=== PATIENT | female | born 1945 | race Caucasian/White ===

== ENCOUNTER 2017-02-02 05:38 | Day surgery (SDC) | payer MEDICARE, OTHER ==
[2017-02-01 16:25] LABS: HEMATOCRIT 39.3 % (36.0-48.0); HEMOGLOBIN 13.1 g/dL (12-16); MCH 31.9 pg (26.0-34.0); MCHC 33.3 g/dL (31.0-37.0); MCV 95.6 fL (80.0-100.0); MEAN PLATELET VOLUME 9.9 fL (7.4-10.4); RBC 4.11 10x6/uL (4.00-5.40); RDW 12.2 % (11.5-14.5); WBC 5.6 10x3/uL (4.8-10.8)
[~2017-02-02] VITALS: Ht 165.1 cm; Wt 71.7 kg
--- NOTE | ~2017-02-02 | OP ---
PATIENT NAME: LEOBARDO MENDEZ MEDICAL RECORD: [id number] :45 [facility] AD[facility]ION DATE: SURGEON: JORGE GIANG DATE OF OPERATION: 02/02/2017 SURGEON: Jorge Giang DPM. PREOPERATIVE DIAGNOSIS: Osteoarthritis, first metatarsophalangeal joint, right foot. POSTOPERATIVE DIAGNOSIS: Osteoarthritis, first metatarsophalangeal joint, right foot. PROCEDURE: Carlos Eduardo-implant arthroplasty, right first metatarsophalangeal joint. ANESTHESIA: General. HEMOSTASIS: Pneumatic ankle tourniquet inflated to 250 mmHg. ESTIMATED BLOOD LOSS: Minimal. MATERIALS: One [email or web address] first MPJ carlos eduardo-implant (phalangeal implant). INJECTABLES: A 20 cc of 0.5% bupivacaine plain. The patient has longstanding history of pain associated the first metatarsophalangeal joint, right foot. She has tried conservative modalities including carbon fiber insert to no avail. She is here today for surgical correction. I have reviewed with her the risks and benefits of the procedure. Complications were discussed, her questions they were answered. She was appropriately consented for the above-mentioned procedure. The patient was brought in the operating room and placed in the operating table in supine position. A timeout was called with Dr. Giang, who identified the patient, the surgical site, and the surgery to be performed. Once appropriate anesthesia was obtained, the foot was prepped and draped in the usual aseptic manner. The pneumatic ankle tourniquet was inflated to 250 mmHg on the well-padded right ankle. Attention was directed to the dorsal aspect of the first metatarsophalangeal joint where a 6 cm linear incision was made. This incision was made just medial to the extensor hallucis longus tendon. This incision was carried deep to soft tissue with care being taken to retract all vital neurovascular structures. All bleeders were cauterized along the way. The periosteum was then reflected from the first metatarsophalangeal joint, thus exposing the base of the proximal phalanx and the head of the first metatarsal. The joint was inspected and found to be completely eroded of all cartilage on both the head of the first metatarsal and the base of the proximal phalanx. Multiple large osteophytes and cartilaginous growth were noted around the base of the proximal phalanx as well as the head of the first metatarsal. These were all resected, utilizing both a sagittal saw and rongeur. Next, the base of the proximal phalanx was resected utilizing a sagittal saw. Next, utilizing a manufacture's recommended technique, one small first metatarsophalangeal joint carlos eduardo-implant was placed OPERATIVE REPORT [id number] LEOBARDO MENDEZ within the base of the proximal phalanx. The toe was placed through a range of motion and range of motion was noted to be in increased. The implant was noted to be of appropriate size. The surgical site was then irrigated with copious amounts of normal sterile saline via bulb syringe. The surgical site was then inspected for any remaining sharp bony prominences and all that were noted were resected with a rongeur. The periosteum was reapproximated and coapted using 3-0 Vicryl. The subQ was reapproximated and coapted using 3-0 Vicryl. The skin was reapproximated and coapted using 4-0 nylon. A dressing consisting of Xeroform, 4 x 4, Kerlix, and an Mando bandage was applied to the right foot. The pneumatic ankle tourniquet was deflated and capillary refill time was immediate to all digits of the right foot. The patient will be discharged home with instructions to ice and elevate the right foot. She has a postop shoe that she is to ambulate with. She was dispensed my cell phone number for any after hours difficulties and there were no complications with this procedure. We will follow up with her next week. TRANSINT:[id number] Voice Confirmation ID: [id number] DOCUMENT ID: [id number] JORGE GIANG CC: [id number] DICTATION DATE: 02/03/171699 AIRPORT BAGGAGE SCREENER: 02/04/17 0044 [facility] 02/02/17 [facility] [address] [id number]
[~2017-02-02 05:38] MED LIST: AMOXICILLIN500 M1 PO; ATIVAN1 MG PO; COZAAR50 MG PO
[2017-02-02] MEDS ORDERED: EVISTA60 MG PO (13:47)
[2017-02-02 13:53] VITALS: BP 159/64; Ht 165.1 cm; Wt 71.7 kg
[2017-02-02] MEDS ORDERED: ZOFRAN ODT4 MG/UDTAB PO (14:09)
--- NOTE | 2017-02-02 17:31 | NUR ---
UNABLE TO FIND FAMILY FOR REPORT. REPORT CALLED TO [facility] NURSE.
--- NOTE | 2017-02-02 20:30 | NUR ---
IV TO LEFT ARM DC'D WITH TIP INTACT, NO REDNESS OR SWELLING NOTED TO SITE. DISCHARGE INSTRUCTIONS REVIEWED WITH PATIENT PER NICHOLAS LAMB RN. VERBALIZED UNDERSTANDING. DC'D VIA WC WITH
== END 2017-02-02 20:33 | disposition home or self-care (01) ==
LOC: D.OPS 05:38 → D.PAN 14:15 → D.OPS 14:15
PROVIDERS: Anesthesiology
DX: M19.071 Primary osteoarthritis, right ankle and foot (principal); I10 Essential (primary) hypertension; Z01.812 Encounter for preprocedural laboratory examination

== ENCOUNTER → 2018-05-18 14:35 | Outpatient (CLI) | payer MEDICARE, OTHER ==
[2017-02-02 13:53] VITALS: BMI 26.3
[~2018-05-18 14:35] MED LIST changes: +EVISTA60 MG PO; +ZOFRAN ODT4 MG/UDTAB PO
== END | disposition home or self-care (01) ==
LOC: D.CT 05-17 15:00
DX: R91.8 Other nonspecific abnormal finding of lung field (principal)

== ENCOUNTER 2018-05-27 11:38 | Inpatient (IN) | payer MEDICARE, OTHER ==
[~2018-05-27] VITALS: Ht 165.1 cm; Wt 68.2 kg
[2018-05-27] MEDS ORDERED: ALENDRONATE SOD70 MG PO (11:44)
[2018-05-27] MEDS ORDERED: NORVASC5 MG PO (11:45)
[2018-05-27] MEDS ORDERED: ZYRTEC10 MG PO (11:45)
[2018-05-27] MEDS ORDERED: CYCLOBENZAPRINE5 MG PO (11:47)
[2018-05-27] MEDS ORDERED: COLACE100 MG PO (11:47)
[2018-05-27] MEDS ORDERED: FLUTICASONE PRO16 GM NASAL (11:48)
[2018-05-27] MEDS ORDERED: FUROSEMIDE40 MG (11:48)
[2018-05-27] MEDS ORDERED: GEMFIBROZIL600 MG PO (11:48)
[2018-05-27] MEDS ORDERED: ESTRACE 0.0142.5 GM VG (11:48)
[2018-05-27] MEDS ORDERED: CLARITIN 10 MG10 MG (11:49)
[2018-05-27] MEDS ORDERED: ED-SPAZ0.125 MG PO (11:49)
[2018-05-27] MEDS ORDERED: COZAAR50 MG PO (11:49)
[2018-05-27] MEDS ORDERED: MIRALAX17 GM PO (11:50)
[2018-05-27] MEDS ORDERED: EVISTA60 MG PO (11:50)
[2018-05-27] MEDS ORDERED: KLOR-CON M2020 MEQ PO (11:50)
[2018-05-27] MEDS ORDERED: TESSALON PERLE100 MG PO (11:51)
[2018-05-27] MEDS ORDERED: RANITIDINE HCL150 M1 PO (11:51)
[2018-05-27] MEDS ORDERED: DESERYL50 M2 PO (11:51)
[2018-05-27] MEDS ORDERED: ALBUTEROL SULF8.5 GM INH (11:52)
[2018-05-27 12:38] LABS: APPEARANCE CLEAR (CLEAR); BILIRUBIN NEGATIVE (NEGATIVE); COLOR STRAW (YELLOW); GLUCOSE NEGATIVE (NEGATIVE); KETONE NEGATIVE (NEGATIVE); NITRITE NEGATIVE (NEGATIVE); PROTEIN NEGATIVE (NEGATIVE); SPECIFIC GRAVITY 1.005 (1.005-1.020); UROBILINOGEN NORMAL (NORMAL)
[2018-05-27 12:52] LABS: BASOPHILS 0.4 % (0-2); EOSINOPHILS 1.1 % (0-7); HEMATOCRIT 38.7 % (36.0-48.0); HEMOGLOBIN 12.7 g/dL (12-16); IMMATURE GRANULOCYTES 0.1 % (0-5); LYMPHOCYTES 18.7 % (15-50); MCH 31.1 pg (26.0-34.0); MCHC 32.8 g/dL (31.0-37.0); MCV 94.6 fL (80.0-100.0); MEAN PLATELET VOLUME 9.1 fL (7.4-10.4); MONOCYTES 12.2 % (2-11); NEUTROPHILS 67.5 % (40-80); RBC 4.09 10x6/uL (4.00-5.40); RDW 12.6 % (11.5-14.5); WBC 7.2 10x3/uL (4.8-10.8)
[2018-05-27 12:58] LABS: PLATELET COUNT 302 10x3/uL (130-400)
[2018-05-27 13:25] LABS: ALBUMIN 2.9 g/dL (3.4-5.0); ANION GAP 14.8 mmol/L (8-16); BILIRUBIN - TOTAL 0.22 mg/dL (0.2-1.3); CALCIUM 8.2 mg/dL (8.5-10.1); CARBON DIOXIDE 26.8 mmol/L (21.0-32.0); CREATININE - SERUM 1.3 mg/dL (0.6-1.3); POTASSIUM - SERUM 4.6 mmol/L (3.5-5.1); PROTEIN - SERUM 6.5 g/dL (6.4-8.2)
[2018-05-27 14:42] VITALS: BP 139/72
[2018-05-27 17:13] LABS: APTT 30.6 SECONDS (22.8-39.4); INR 1.03 (0.85-1.17)
--- NOTE | 2018-05-27 20:00 | NUR ---
UP AMBULATING IN ROOM ALERT AND ORIENTIATED, NONPRODUCTIVE COUGH SALINE LOCK IN PLACE, DENIES PAIN, CALL LIGHT IN REACH, HAS HOME MEDS AT BEDSIDE INSTRUCTED NOT TO TAKE ANY OF HER HOME MEDS NURSE WOULD BRING MEDS THAT HAD ORDERED OR WOULD NEED TO GET DR TO PUT IN ORDER SO CAN TAKE HOME MEDS, STATES SHE WILL NOT TAKE ANY OF HERS TONIGHT
[2018-05-27 21:13] VITALS: BP 104/44
[2018-05-27 22:59] VITALS: BP 132/50; Ht 165.1 cm; Wt 68.2 kg
[2018-05-28] VITALS: BP 129/59
[2018-05-28 03:00] VITALS: BP 128/57
[2018-05-28 05:54] LABS: BASOPHILS 0.7 % (0-2); EOSINOPHILS 6.3 % (0-7); HEMATOCRIT 35.9 % (36.0-48.0); HEMOGLOBIN 11.8 g/dL (12-16); IMMATURE GRANULOCYTES 0.2 % (0-5); LYMPHOCYTES 25.2 % (15-50); MCHC 32.9 g/dL (31.0-37.0); MCV 94.2 fL (80.0-100.0); MEAN PLATELET VOLUME 9.5 fL (7.4-10.4); MONOCYTES 13.9 % (2-11); NEUTROPHILS 53.7 % (40-80); PLATELET COUNT 323 10x3/uL (130-400); RBC 3.81 10x6/uL (4.00-5.40); RDW 12.6 % (11.5-14.5)
[2018-05-28 06:06] LABS: INR 1.09 (0.85-1.17); PROTIME 13.6 SECONDS (11.6-15.0)
[2018-05-28 06:07] LABS: APTT 31.5 SECONDS (22.8-39.4)
[2018-05-28 06:27] LABS: ALBUMIN 2.5 g/dL (3.4-5.0); ANION GAP 14.6 mmol/L (8-16); BILIRUBIN - TOTAL 0.22 mg/dL (0.2-1.3); CALCIUM 8.5 mg/dL (8.5-10.1); CARBON DIOXIDE 25.3 mmol/L (21.0-32.0); CREATININE - SERUM 1.3 mg/dL (0.6-1.3); PROTEIN - SERUM 6.4 g/dL (6.4-8.2)
[2018-05-28 06:28] LABS: POTASSIUM - SERUM 3.9 mmol/L (3.5-5.1)
[2018-05-28 08:06] VITALS: BP 132/58
[2018-05-28 12:40] VITALS: BP 140/66
--- NOTE | 2018-05-28 12:51 | NUR ---
PT LEFT FLOOR FOR PROCEDURE. STABLE AT THIS TIME
--- NOTE | 2018-05-28 13:46 | NUR ---
RETURNED TO ROOM FROM PROCEDURE. ALERT AND ORIENTED WITH DRESSING INTACT TO RIGHT LATERAL CHEST. LUNGS CTA WITHOUT ANY SOB.ENCOURAGED TO USE CALL [facility] FOR ASSIST
--- NOTE | 2018-05-28 15:09 | NUR ---
WILL APPLY TELEMETRY WHEN AVAILABLE.
[2018-05-28 16:05] VITALS: BP 156/54
[2018-05-28 16:11] LABS: PROTEIN - BODY FLUID 4.4 G/DL
[2018-05-28 17:04] LABS: MACROPHAGES BF 10 %; NEUT - BF 10 %
[2018-05-28 19:00] VITALS: BP 124/60
--- NOTE | 2018-05-28 19:23 | NUR ---
RECIEVED UP IN BED VOICING CONCERNS OVER HER MEDICATIONS. EXPLAINED THAT WHEN I COME IN TO GIVE HER MEDS I WOULD GO OVER EACH ONE. VERY ANXIOUS ABOUT PROCEDURE SHE HAD TODAY. C/O SOB. RT CALLED FOR 1900 UPDRATS ORDERED. EVERYTIME THIS NURSE GOES BY ROOM PT PHILIPP ME IN TO QUESTION ABOUT MEDICATIONS. DENIES ANY PAIN. WILL CONT. POC.
[2018-05-29] VITALS: BP 134/60
[2018-05-29 05:17] LABS: BASOPHILS 0.3 % (0-2); EOSINOPHILS 2.9 % (0-7); HEMATOCRIT 35.5 % (36.0-48.0); IMMATURE GRANULOCYTES 0.3 % (0-5); LYMPHOCYTES 23.6 % (15-50); MCH 31.7 pg (26.0-34.0); MCHC 33.8 g/dL (31.0-37.0); MCV 93.7 fL (80.0-100.0); MEAN PLATELET VOLUME 9.5 fL (7.4-10.4); MONOCYTES 11.6 % (2-11); NEUTROPHILS 61.3 % (40-80); PLATELET COUNT 347 10x3/uL (130-400); RBC 3.79 10x6/uL (4.00-5.40); RDW 12.8 % (11.5-14.5); WBC 6.6 10x3/uL (4.8-10.8)
[2018-05-29 05:44] LABS: ALBUMIN 2.5 g/dL (3.4-5.0); ANION GAP 15.2 mmol/L (8-16); BILIRUBIN - TOTAL 0.3 mg/dL (0.2-1.3); CALCIUM 8.3 mg/dL (8.5-10.1); CARBON DIOXIDE 24.7 mmol/L (21.0-32.0); CREATININE - SERUM 1.4 mg/dL (0.6-1.3); POTASSIUM - SERUM 3.9 mmol/L (3.5-5.1); PROTEIN - SERUM 6.3 g/dL (6.4-8.2)
[2018-05-29 05:55] VITALS: BP 113/50
[2018-05-29 08:28] VITALS: BP 115/56
--- NOTE | 2018-05-29 09:49 | MORECARE ---
CASE MANAGEMENT DISCHARGE SUMMARY PATIENT: LEOBARDO MENDEZ LUIS UNIT: [id number] ADM DATE: 05/28/18 AGE: 72 : 45 SEX: F ROOM/BED: D.2214 AUTHOR: KANIKA,DOC PHYSICIAN: REFERRING PHYSICIAN: LUCIA HOWELL MD DATE OF SERVICE: 05/29/18 Discharge Plan Patient Name: LEOBARDO MENDEZ Facility: [facility]:[place] : 1945 Planned Disposition: Home Anticipated Discharge Date: Discharge Date: Expected LOS: Initial Reviewer: [email or web address] Initial Review Date: 05/27/2018 Generated: 05/29/18 10:49 am Comments DCP- Discharge Planning Updated by [email or web address]: Bernice Lucero on 05/29/18 8:[address] Patient Name: LEOBARDO MENDEZ Admission Status: ER Accout number: [id number] Admission Date: 05-28-2018 : 1945 Admission Diagnosis: Attending: Lucia Howell Current LOS: 1 Anticipated DC Date: Planned Disposition: Home Primary Insurance: MEDICARE A & B Discharge Planning Comments: CM met with patient to assess discharge planning needs. Patient stated that she is independent with her care at home and plans to return there today. Her will be her pedicab driver home. There are no steps or stair in her home and she denies any HH or DME needs/wants. CM will continue to follow and assist with dc planning needs as needed Facing End Trimmer: Bernice Lucero DCPIA - Discharge Planning Initial Assessment Updated by [email or web address]: Bernice Lucero on 05/29/18 9:43 am * Is the patient Alert and Oriented? Yes * How many steps to enter\exit or inside your home? * PCP [place] * Pharmacy [facility] * Preadmission Environment Home with Family * ADLs Independent * Equipment None * List name and contact numbers for known caregivers / representatives who currently or will assist patient after discharge: PIPE ( [phone]) * Verbal permission to speak to the caregivers and representatives has been obtained from the patient. N/A * Community resources currently utilized None * Additional services required to return to the preadmission environment? No * Can the patient safely return to the preadmission environment? Yes * Has this patient been hospitalized within the prior 30 days at any hospital? No Patient Name: LEOBARDO MENDEZ Page 73154 at 0949 All edits/amendments must be made on the electronic document DICTATION DATE: 05/29/18948 FASHION MERCHANDISER: LAQUITA 05/29/18948 RPT#: [id number] DC DATE: STATUS: ADM IN [facility] [address] [place] [address] END OF REPORT
--- NOTE | 2018-05-29 11:13 | NUR ---
AWAKE AND ALERT. ORIENTED X3. NO COUGH NOTED. DENIES NEEDS.
--- NOTE | 2018-05-29 11:19 | NUR ---
IV DC AT THIS TIME WITH CATH INTACT, DC INSTRCUTIONS GIVEN NO QUESTIONS/CONCERNS EXPRESSED LEFT VIA WHEELCHAIR VIA HOSPTIAL STAFF VIA PRIVATE VECHILE IN STABLE CONDITION
[2018-05-29 20:08] LABS: AFB SPECIMEN PROCESSING Concentration (())
--- NOTE | 2018-05-30 07:53 | CN ---
PATIENT NAME:LEOBARDO MENDEZ MEDICAL RECORD: [id number] : 45 LOCATION:D.MS [address] ADMIT DATE: 05/28/18 ACCOUNT: [id number] CONSULTING PHYSICIAN: CHRIS NORIEGA DO REFERRING PHYSICIAN: JING HOWELL MD DATE OF CONSULTATION: 05/29/2018 SUBJECTIVE: A 72-year-old female, the patient admitted to Dr. Howell for lung mass and hypoxemia. Consulted for medical management and hypertension. PAST MEDICAL HISTORY: Significant for remote history of breast cancer status post resection and chemo, hypertension. PAST SURGICAL HISTORY: Hysterectomy, right lumpectomy, cholecystectomy, lower extremity venous ablation. ALLERGIES: REPORTED SULFA, COMPAZINE. CURRENT MEDICATIONS: Listed as Fosamax, amlodipine b.i.d., Zyrtec 10 mg daily, gemfibrozil, vaginal Estrace, losartan 50 mg b.i.d., recent Lasix, and potassium. HISTORY OF PRESENT ILLNESS: The patient is rare to come in the clinic. She has had multiple urgent care visits, treated with antibiotics for suspected pneumonia, was found to have pleural effusion, had outpatient CT and has recently seen Dr. Howell for pleural base mass, underwent thoracentesis yesterday with approximately 1 liter of fluid and pleural biopsy results pending. PHYSICAL EXAMINATION: VITAL SIGNS: Temp 98.1, blood pressure 113/50, heart rate 88, respirations 18, and O2 sats 92% room air. GENERAL: Alert and oriented, no present distress. Anxious. HEENT: Normocephalic, atraumatic. Eyes: Pupils are equally round and reactive. Ears: Canals patent, TMs are intact. Nose: Nares patent without drainage. Throat: No erythema, no exudates. NECK: Supple. No lymphadenopathy, no JVD. HEART: Regular rate and rhythm. LUNGS: Slightly diminished breath sounds. Breathing is nonlabored. No egophony. No rhonchi. ABDOMEN: Soft, nontender. Bowel sounds positive. EXTREMITIES: Present times 4. NEUROLOGIC: Intact. SKIN: Warm and dry. No rash. LABORATORY DATA: CBC: White count 6.6, hemoglobin 12, hematocrit 35.5, and platelets 347. Chemistry shows a sodium of 135, potassium 3.9, chloride 99, bicarbonate 24.7, BUN 18, creatinine 1.4, AST 38, ALT 28. Chest x-ray shows [id number] right pleural effusion - slightly improved from prior exam, small left pleural effusion. CONSULT REPORT [id number] LEOBARDO MENDEZ ASSESSMENT AND PLAN: 1. Recurrent pleural effusions, pleural based mass, pathology pending. 2. Hypertension, presently normal to low blood pressures, we will hold current medications, restart as needed. 3. Allergic rhinitis, fexofenadine 60 mg daily. Supportive care. Await pathology results. The patient will discuss definitive treatment with oncology. Appreciate this consult. We will follow accordingly. TRANSINT:[id number] Voice Confirmation ID: [id number] DOCUMENT ID: [id number] CHRIS NORIEGA DO at 0753 CC: [id number] DICTATION DATE: 05/29/18 08 RESEARCH LABORATORY SPECIALIST: 05/29/18 1147 DIS IN 05/29/18 [id number] [place] [address]
[2018-05-30 13:20] LABS: FUNGUS STAIN Final report (())
--- NOTE | 2018-05-30 19:45 | CN ---
PATIENT NAME:LEOBARDO THAKUR MEDICAL RECORD: [id number] : 45 LOCATION:D.MS [address] ADMIT DATE: 05/28/18 ACCOUNT: [id number] CONSULTING PHYSICIAN: DOUG PEPE MD REFERRING PHYSICIAN: LUCIA HOWELL MD DATE OF CONSULTATION: 05/28/2018 CONSULT REQUESTING PHYSICIAN: Lucia Howell MD REASON FOR CONSULTATION: Right-sided pleural effusion, acute hypoxic respiratory failure. HISTORY OF PRESENT ILLNESS: Ms. Thakur is a 72-year-old female who has a history of CA of the breast, for the last 1 month she has a chronic cough without much sputum production. Denies any fevers and chill. She was seen in the walk-in clinic a couple of times and she has a questionable diagnosis of pneumonia. She was treated with antibiotic but without any benefit. Then, her breathing was getting worse, so the patient came into the ER and chest x-ray showed a large right-sided pleural effusion. Denies any fever and chills, no night sweats, no chest pain. REVIEW OF SYSTEMS: As in the history of present illness. PAST MEDICAL HISTORY: 1. CA of the breast. 2. Hypertension. 3. Peripheral vascular disease. 4. Osteopenia. PAST SURGICAL HISTORY: 1. Hysterectomy. 2. Cholecystectomy. 3. Venous ablation surgery. 4. Right breast lumpectomy. ALLERGIES: SHE IS ALLERGIC TO SULFA AND COMPAZINE. MEDICATIONS: She is on Rocephin IV. Her other medication is reviewed. PERSONAL AND SOCIAL HISTORY: The patient never smoked. She is a nondrinker. FAMILY HISTORY: Significant for hypertension. PHYSICAL EXAMINATION: GENERAL: Now, the patient is lying comfortably in bed, she is not in acute distress. VITAL SIGNS: The blood pressure is 132/58, pulse is 94, respiration is 18, temperature 98.2, and SpO2 92% on room air. HEENT: Conjunctivae are pink. Sclerae are not icteric. NECK: Supple, no JVD. CHEST: The chest excursion is minimal on the right side. There is dullness on percussion and crackles. HEART: Rhythm regular, normal sound, no murmur. ABDOMEN: Soft, bowel sounds present. No hepatosplenomegaly. RECTAL: Deferred. CONSULT REPORT [id number] LEOBARDO THAKUR EXTREMITIES: No cyanosis, no clubbing, no pedal edema. CENTRAL NERVOUS SYSTEM: The patient is awake and alert. There are no obvious cranial nerve abnormalities. The gait was not tested. LABORATORY DATA: CTA of the chest: There was no PE. There is a mass-like soft tissue density in the right middle lobe. There is a large right-sided pleural effusion. There is mediastinal lymphadenopathy. CBC: No leukocytosis. IMPRESSION: 1. Acute hypoxic respiratory failure. 2. Large right-sided pleural effusion. 3. Mass, right middle lobe. 4. Mediastinal lymphadenopathy. 5. Chronic cough. 6. Atelectasis of right lower lobe, possible pneumonia. 7. History of carcinoma of the breast. RECOMMENDATIONS: 1. Follow up on the thoracentesis results. 2. Mucinex DM. 3. Tessalon Perles and adjust the dose. 4. Continue empiric Rocephin. 5. We will follow up labs and chest radiographs and cytology as well as on pathology result. Dr. Howell thank you for involving me in the care of Ms. Thakur. TRANSINT:[id number] Voice Confirmation ID: [id number] DOCUMENT ID: [id number] DOUG PEPE MD at 1945 CC: [id number] DICTATION DATE: 05/28/181823 VISUAL ARTIST: 05/28/182246 DIS IN 05/29/18 [facility] [address] [place] [address]
--- NOTE | 2018-06-04 07:22 | CN ---
PATIENT NAME:LEOBARDO THAKUR MEDICAL RECORD: [id number] : 45 LOCATION:D.MS [address] ADMIT DATE: 05/28/18 ACCOUNT: [id number] CONSULTING PHYSICIAN: KENNETH RED MD REFERRING PHYSICIAN: JING HOWELL MD DATE OF CONSULTATION: 05/28/2018 Ms. Thakur is a patient of Dr. Harrington's. HISTORY OF PRESENT ILLNESS: The patient complained of having shortness of breath. The patient states that on April 25 she had started on Keflex, apparently was seen in a walk-in clinic; Keflex had been discontinued. She returned to a walk-in clinic, placed on Augmentin and told she had pneumonia, continued to have problems with shortness of breath. The patient also returned to another walk-in clinic, given a Z-TONY. She saw Dr. Harrington on 05/18/2018. She was found to have a right pleural effusion. She had an echocardiogram performed as well as having a BMP. She was referred to agriculture consultant. The patient presented to the Emergency Room complaining of increasing shortness of breath and right pleural effusion. The patient was admitted by Dr. Howell. Dr. Harrington has been asked to see the patient for medical management. PAST MEDICAL HISTORY: Apparently, the patient has had a ventral hernia repair. She has also had breast cancer, right mastectomy 15 years ago. She has also had a history of having been a . FAMILY HISTORY: Mother of Alzheimer's in her 80s. Father of heart disease in his 60s. HABITS: None. MEDICATIONS: Include, alendronate 70 mg once a day, amlodipine 5 mg once a day, BuSpar 5 mg b.i.d., Zyrtec 10 mg 1 p.o. daily as needed. She has been on guaifenesin cough syrup, Flexeril 5 mg p.o. q. 8 hours p.r.n. muscle spasm, Colace 100 mg p.o. daily, estrogen 0.01% vaginal cream, fluticasone 50 mcg 1 spray in each naris twice daily, Lasix 40 mg once a day, gemfibrozil 600 mg p.o. b.i.d. Homocysteine 0.125 sublingual q. 4 hours p.r.n. abdominal cramping, losartan 50 mg once a day, MiraLax 17 grams per day, KCl 20 mEq half tablet once a day, Evista 60 mg once a day, ranitidine 150 mg b.i.d., Tessalon Perles 1-2 q. 8 hours p.r.n. cough, Trazodone 50 mg p.o. at bedtime. REVIEW OF SYSTEMS: CONSTITUTIONAL: She denies any headaches, seizure or syncope. She denies any change in visual or auditory acuity. PULMONARY: She had had increasing shortness of breath. CARDIOVASCULAR: She had no chest pain, palpitation, PND or orthopnea. GASTROINTESTINAL: No chronic nausea, vomiting, melena or hematochezia. GENITOURINARY: No urgency, frequency, or dysuria. PHYSICAL EXAMINATION: VITAL SIGNS: Currently, the patient's temperature 98.2, pulse is 90, respirations are 18, blood pressure is 156/54, O2 sat is 92%. HEENT: Head is normocephalic. No lesions. Ears: TMs clear. Eyes: Pupils equal, round and reactive to light. Extraocular movements are intact. Nasal cavity, oral cavity, and oropharynx clear. NECK: Supple. There is no adenopathy. CONSULT REPORT [id number] LEOBARDO THAKUR HEART: Has a regular rate. LUNGS: Clear. ABDOMEN: Soft, bowel sounds positive. EXTREMITIES: Lower extremities have no edema. LABORATORY DATA: The patient earlier today had a CT-guided thoracentesis with a pleural mass biopsy. She had 1 liter of fluid was removed and sent. The patient also had a CTA of the chest showing no clear evidence of pulmonary embolus, although she did have a right lung which was extensively consolidated. After the patient had a pleural biopsy and thoracentesis, she had no evidence of pneumothorax, some residual fluid with atelectasis, soft tissue remained in the right lung concerning for malignancy. Her white count was 6.0, hemoglobin 12.8, hematocrit 35.9, and her platelets were 323. Sodium 136, potassium 3.9, chloride 100, CO2 is 25, BUN is 20, creatinine 1.3, and glucose was normal. Liver functions unremarkable. Urinalysis is unremarkable. ASSESSMENT: Right pleural effusion, possible right lung mass, status post thoracentesis removing 1 liter of fluid with a pleural biopsy, history of breast cancer remotely 15 years ago, gastroesophageal reflux, and allergic rhinitis. PLAN: We will await pathology report. I feel that if the patient is stable she can be discharged and await pending pathology. Thanks for the consultation. TRANSINT:[id number] Voice Confirmation ID: [id number] DOCUMENT ID: [id number] KENNETH RED MD at 0722 CC: [id number] DICTATION DATE: 05/28/181739 TRIP FOLLOWER: 05/28/187 DIS IN 05/29/18 [id number] [place] [id number]
--- NOTE | 2018-06-04 09:23 | MORECARE ---
CASE MANAGEMENT DISCHARGE SUMMARY PATIENT: LEOBARDO MENDEZ LUIS UNIT: [id number] ADM DATE: 05/28/18 AGE: 72 : 45 SEX: F ROOM/BED: D.2214 AUTHOR: KANIKA,DOC PHYSICIAN: REFERRING PHYSICIAN: LUCIA HOWELL MD DATE OF SERVICE: 06/04/18 Discharge Plan Patient Name: LEOBARDO MENDEZ Facility: [facility]:[place] : 1945 Planned Disposition: Home Anticipated Discharge Date: Discharge Date: 05/29/2018 Expected LOS: 0 Initial Reviewer: [email or web address] Initial Review Date: 05/27/2018 Generated: 06/04/18 10:23 am Comments DCP- Discharge Planning Updated by [email or web address]: Bernice Lucero on 05/29/18 8:[address] Patient Name: LEOBARDO MENDEZ Admission Status: ER Accout number: [id number] Admission Date: 05-28-2018 : 1945 Admission Diagnosis: Attending: Lucia Howell Current LOS: 1 Anticipated DC Date: Planned Disposition: Home Primary Insurance: MEDICARE A & B Discharge Planning Comments: CM met with patient to assess discharge planning needs. Patient stated that she is independent with her care at home and plans to return there today. Her will be her flag car driver home. There are no steps or stair in her home and she denies any HH or DME needs/wants. CM will continue to follow and assist with dc planning needs as needed Violin Repairer: Bernice Lucero DCPIA - Discharge Planning Initial Assessment Updated by [email or web address]: Bernice Lucero on 05/29/18 9:43 am * Is the patient Alert and Oriented? Yes * How many steps to enter\exit or inside your home? * PCP [place] * Pharmacy [facility] * Preadmission Environment Home with Family * ADLs Independent * Equipment None * List name and contact numbers for known caregivers / representatives who currently or will assist patient after discharge: PIPE ( [phone]) * Verbal permission to speak to the caregivers and representatives has been obtained from the patient. N/A * Community resources currently utilized None * Additional services required to return to the preadmission environment? No * Can the patient safely return to the preadmission environment? Yes * Has this patient been hospitalized within the prior 30 days at any hospital? No Last DP export: 05/29/18 8:49 am Patient Name: LEOBARDO MENDEZ Page [phone] at 0923 All edits/amendments must be made on the electronic document DICTATION DATE: 06/04/18921 AS400 DEVELOPER: LAQUITA 06/04/18921 RPT#: [id number] DC DATE:05/29/18 STATUS: DIS IN [facility] [address] [place] [address] END OF REPORT
[2018-06-25 07:10] LABS: FUNGUS MYCOLOGY CULTURE Final report (())
[2018-07-19 13:18] LABS: ACID FAST CULTURE Negative (()); ACID FAST SMEAR Negative (())
== END 2018-05-29 11:21 | disposition home or self-care (01) | DRG 180 ==
LOC: D.ER 11:38 → OBSVTIME 15:15 → D.EDHOLD 15:15 → D.MS 15:15
PROVIDERS: Emergency Medicine; Family Medicine; Radiology Diagnostic Radiology; ADMIT Internal Medicine Hematology & Oncology
PROC: 0W993ZZ Drainage of Right Pleural Cavity, Percutaneous Approach (ICD-10-PCS; principal; 2018-05-28 12:35)
PROC: 0BBD3ZX Excision of Right Middle Lung Lobe, Percutaneous Approach, Diagnostic (ICD-10-PCS; 2018-05-28 12:35)
DX: C34.90 Malignant neoplasm of unspecified part of unspecified bronchus or lung (principal); J18.9 Pneumonia, unspecified organism; J96.01 Acute respiratory failure with hypoxia; J98.11 Atelectasis; J91.0 Malignant pleural effusion; R59.0 Localized enlarged lymph nodes; I73.9 Peripheral vascular disease, unspecified; I10 Essential (primary) hypertension; J30.9 Allergic rhinitis, unspecified; M81.0 Age-related osteoporosis without current pathological fracture; F41.9 Anxiety disorder, unspecified; E78.5 Hyperlipidemia, unspecified; Z85.3 Personal history of malignant neoplasm of breast

== ENCOUNTER 2018-06-07 07:35 | Inpatient (IN) | payer MEDICARE, OTHER ==
[~2018-06-07] VITALS: Ht 165.1 cm; Wt 67.1 kg
--- NOTE | ~2018-06-07 | HEMODYNAMI ---
PATIENT:LEOBARDO MENDEZ MEDICAL RECORD: [id number] : 45 LOCATION:D.SD Maria Luz.2217 ADMISSION DATE: 06/07/18 Generatedon:06/11/201813:12 Patient name: LEOBARDO MENDEZ Patient #: [id number] SSN: : 1945 Date of study: 06/11/2018 Page: Of Hemodynamic Procedure Report Patient Data Patient Demographics Procedure consent was obtained First Name: LEOBARDO Gender: Female Last Name: ANDREA : 1945 [facility] Initial: LUIS Age: 72 year(s) Patient #: [id number] Race: Unknown Additional ID: [id number] Contact details Address: [address] [place] [address] State: [place] City: [place] Zip code: [address] Past Medical History Allergies Allergen Reaction Date Comments Reported Other allergy 06/11/2018 compazine and sulfa Admission Admission Data Admission Date: 06/07/2018 Admission Time: 11:47 Room #: D.2217 Procedure Procedure Types Cath Procedure Peripheral Cath Diagnostic Procedure Miscellaneous Pleurex Pleurex Cath Place w/ Imaging Procedure Description Procedure Date Procedure Date: 06/11/2018 Procedure Start Time: 12:45 Procedure Staff Name Function Livan Nguyen MD Performing Physician Harpal Hassan RT Scrub Marcia Cummins RN Nurse Lo Burnett RT Monitor Procedure Data Cath Procedure Fluoroscopy Diagnostic fluoroscopy Total fluoroscopy Time: 0.5 time: 0.5 min min Diagnostic fluoroscopy Total fluoroscopy dose: 12 dose: 12 mGy mGy Procedure Medications Medication Administration Route Dosage Oxygen etCO2 Nasal cannula 4 l/min Lidocaine 1% added to field 40 Heparin Flush Bag added to field 1 bags (1000units/500ml NS) unlisted medication I.V. 1 g Versed I.V. 2 mg Fentanyl I.V. 50 mcg Fentanyl I.V. 50 mcg Versed I.V. 2 mg Hemodynamics Rest Heart Rate: 84 (bpm) Snapshots Pre Cath Intra NCS Post Cath Vital Signs Time Heart Resp SPO2 etCO2 NIBP (mmHg) Rhythm Pain Sedation Rate (ipm) (%) (mmHg) Status Level (bpm) 12:15:43 113 19 95 15.1 Time NSR 0 (11) 9(A) Exceeded , No pain 12:17:37 93 13 95 13.6 171/90(124) NSR 0 (11) 9(A) , No pain 12:25:55 85 16 96 15.1 163/88(126) NSR 0 (11) 9(A) , No pain 12:30:16 81 29 96 23.4 164/83(122) NSR 0 (11) 9(A) , No pain 12:34:40 83 40 96 12.8 162/75(124) NSR 0 (11) 9(A) , No pain 12:39:00 81 30 96 21.2 162/82(125) NSR 0 (11) 9(A) , No pain 12:43:18 87 27 97 22.7 159/81(122) NSR 0 (11) 9(A) , No pain 12:47:34 86 20 97 25.7 162/84(125) NSR 0 (11) 8(A) , No pain 12:52:33 82 16 96 15.1 Measuring NSR 0 (11) 8(A) , No pain 12:52:39 80 16 96 18.1 154/78(112) NSR 0 (11) 8(A) , No pain 12:56:53 85 23 95 24.9 154/78(113) NSR 0 (11) 8(A) , No pain 13:01:13 88 16 95 24.2 155/73(122) NSR 0 (11) 8(A) , No pain 13:05:29 90 18 96 15.9 153/84(118) NSR 0 (11) 8(A) , No pain 13:09:45 83 11 96 24.9 145/78(113) NSR 0 (11) 8(A) , No pain Medications Time Medication Route Dose Verified Delivered Reason Notes Effe ctiveness by by 12:15:55 Oxygen etCO2 4 Livan Kennedy for low Nasal l/min Placido Nguyen RN 02 sats cannula 12:32:11 Lidocaine 1% added 40 ML Livan Licona used for to Patrick Nguyen MD procedure field 12:32:40 Heparin Flush added 1 Livan Licona used for Bag to bags Patrick Nguyen MD procedure (1000units/500ml field NS) 12:45:18 CEFEPIME I.V. 1 g Livan Kennedy used for Placido Nguyen RN procedure 12:45:31 Versed I.V. 2 mg Livan Gonzalesine for Full y awake @ Placido Nguyen RN sedation 12:56:11 12:45:41 Fentanyl I.V. 50 Livan Gonzalesine for Full y awake @ mcg Placido Nguyen RN sedation 12:56:17 12:47:26 Fentanyl I.V. 50 Livan Marcia for Most ly mcg Placido Nguyen RN sedation sleeping @ 12:56:23 12:56:33 Versed I.V. 2 mg Livan Gonzalesine for Placido Nguyen RN sedation MD Procedure Log Time Note 12:02:58 Harpal Hassan RT (R) (CV) sent for patient. Start room use. 12:03:05 Time tracking: Regular hours (M-F 7:00 - 5:00) 12:03:11 Plan of Care:Hemodynamics will remain stable., Cardiac rhythm will remain stable., Comfort level will be maintained., Respiratory function will remain adequate., Patient/ family verbilizes understanding of procedure., Procedure tolerated without complication., Recovers from procedure without complications.. 12:03:14 Use device set IR Diagnostic 12:03:16 Sterile Angiographic Pack opened to sterile field. 12:03:16 Bag Decanter ([id number]) opened to sterile field. 12:03:26 Patient received from Med/Surg to IR Alert and oriented. Tansferred to table in Supine position. 12:03:29 Correct patient and procedure confirmed by team. 12:03:31 Signed procedure consent form obtained from patient. 12:03:33 ECG and BP/O2 sat monitors applied to patient. 12:03:34 Full Disclosure recording started 12:03:34 - 12:03:36 - 12:03:39 H&P Date Dictated: 06/11/2018 Within 30 days and on chart.. 12:03:40 Pre-procedure instructions explained to patient. 12:03:40 Pre-op teaching completed and patient verbalized understanding. 12:03:42 Family in patients room. 12:03:44 Patient NPO since Midnight. 12:04:04 Patient allergic to Other allergycompazine and sulfa 12:04:11 Is the patient allergic to Iodine/contrast media? No. 12:04:13 Is patient on blood thinner?No 12:08:26 Patient diabetic? No. 12:08:32 ----Pre-sedation anethsthesia assessment.---- 12:08:38 Previous problem with sedation/anesthesia? No ? 12:08:41 Snore? No 12:08:48 Sleep apnea? No 12:08:51 Deviated septum? No 12:08:53 Opens mouth fully? Yes 12:08:55 Sticks out tongue? Yes 12:09:07 Airway obstruction? Yes lung ca, plum edema 12:09:21 Dentures? No ? 12:09:27 - 12:09:48 IV patent on arrival in port with D5/.45%NaCl at KVO. 12:10:07 Right chest area was prepped with chlora-prep and draped in sterile fashion 12:10:20 - 12:15:55 Oxygen 4 l/min etCO2 Nasal cannula was administered by Marcia Cummins RN; for low 02 sats; 12:24:46 Vital chart was started 12:24:48 Baseline sample Acquired. 12:24:54 - 12:26:00 PLEURX PLEURAL cath system ([id number]) opened to sterile field. 12:32:11 Lidocaine 1% 40 ML added to field was administered by Livan Nguyen MD; used for procedure; 12:32:40 Heparin Flush Bag (1000units/500ml NS) 1 bags added to field was administered by Livan Nguyen MD; used for procedure; 12:44:51 Physician arrived 12:45:01 --------ALL STOP TIME OUT------ 12:45:03 Final Timeout: patient, procedure, and site verified with staff and physician. All members of the team are in agreement. 12:45:18 CEFEPIME 1 g I.V. was administered by Marcia Cummins RN; used for procedure; 12:45:31 Versed 2 mg I.V. was administered by Marcia Cummins RN; for sedation; 12:45:31 Procedure started. 12:45:39 Local anesthetic to Chest area with Lidocaine 1% by Livan Nguyen MD.INITIAL ACCESS ONLY 12:45:41 Fentanyl 50 mcg I.V. was administered by Marcia Cummins RN; for sedation; 12:47:26 Fentanyl 50 mcg I.V. was administered by Marcia Cummins RN; for sedation; 12:54:58 AMPLATZ Super Stiff 75cm wire ([id number]) opened to sterile field. 12:56:11 Effectiveness of Versed delivered @ 12:45:31 is: Fully awake 12:56:17 Effectiveness of Fentanyl delivered @ 12:45:41 is: Fully awake 12:56:23 Effectiveness of Fentanyl delivered @ 12:47:26 is: Mostly sleeping 12:56:33 Versed 2 mg I.V. was administered by Marcia Cummins RN; for sedation; 13:04:25 pleurx cath placed . 1 liter drained 13:04:56 Dermabond Pen opened to sterile field. 13:06:20 Fluoroscopy time 00.50 minutes. 13:06:24 Fluoroscopy dose: 12 mGy 13:06:24 Flurop Dose total: 12 13:10:03 Procedure ended.(Physican Out) 13:11:13 Report given to Med/Surg. 13:12:38 Vital chart was stopped Device Usage Item Name Manufacture Quantity Catalog Hospital Part Current Minimal Lot# / Number Charge Number Stock Stock Serial# Code Sterile Cardinal 1 [id number] 5 Angiographic Health Pack Bag Decanter Microtek 1 [id number] 5 () [employer] PLEURX CareFusion 1 [id number] 5 [id number] PLEURAL cath system ([id number]) AMPLATZ [place] 1 [id number] 5 Super Stiff Scientific 75cm wire ([id number]) Dermabond Ethicon 1 [id number] 5 Pen Signature Audit [place] Stage Time Signature Unsigned Intra-Procedure 06/11/2018 Lo Burnett 1:12:35 PM RT(R) Signatures Monitor : Lo Burnett RT Signature : Date : Time : [address] [address]
[~2018-06-07 07:35] MED LIST changes: +ALBUTEROL SULF8.5 GM INH; +ALENDRONATE SOD70 MG PO; +CLARITIN 10 MG10 MG; +COLACE100 MG PO; +CYCLOBENZAPRINE5 MG PO; +DESERYL50 M2 PO; +ED-SPAZ0.125 MG PO; +ESTRACE 0.0142.5 GM VG; +FLUTICASONE PRO16 GM NASAL; +FUROSEMIDE40 MG; +GEMFIBROZIL600 MG PO; +KLOR-CON M2020 MEQ PO; +MIRALAX17 GM PO; +NORVASC5 MG PO; +RANITIDINE HCL150 M1 PO; +TESSALON PERLE100 MG PO; +ZYRTEC10 MG PO
[2018-06-07] MEDS ORDERED: COZAAR50 MG PO (08:12)
[2018-06-07] MEDS ORDERED: FUROSEMIDE20 MG PO (08:12)
[2018-06-07] MEDS ORDERED: K-TAB10 MEQ PO (08:13)
[2018-06-07 08:19] LABS: BASOPHILS 0.3 % (0-2); EOSINOPHILS 2.6 % (0-7); HEMATOCRIT 37.3 % (36.0-48.0); HEMOGLOBIN 12.6 g/dL (12-16); IMMATURE GRANULOCYTES 0.3 % (0-5); LYMPHOCYTES 17.2 % (15-50); MCH 31.3 pg (26.0-34.0); MCHC 33.8 g/dL (31.0-37.0); MCV 92.6 fL (80.0-100.0); MEAN PLATELET VOLUME 9.1 fL (7.4-10.4); NEUTROPHILS 67.6 % (40-80); PLATELET COUNT 365 10x3/uL (130-400); RBC 4.03 10x6/uL (4.00-5.40); RDW 12.9 % (11.5-14.5); WBC 7.8 10x3/uL (4.8-10.8)
[2018-06-07 08:20] LABS: APTT 29.3 SECONDS (22.8-39.4); INR 1.08 (0.85-1.17); PROTIME 13.5 SECONDS (11.6-15.0)
[2018-06-07 08:26] LABS: ALBUMIN 2.5 g/dL (3.4-5.0); ALKALINE PHOSPHATASE 69 U/L (46-116); ALT (SGPT) 34 U/L (10-68); BILIRUBIN - TOTAL 0.39 mg/dL (0.2-1.3); CALC OSMOLALITY 272 mosm/kg (275-300); CALCIUM 8.4 mg/dL (8.5-10.1); CARBON DIOXIDE 23.7 mmol/L (21.0-32.0); CHLORIDE - SERUM 99 mmol/L (98-107); CREATININE - SERUM 1.4 mg/dL (0.6-1.3); GLUCOSE 128 mg/dL (74-106); POTASSIUM - SERUM 3.9 mmol/L (3.5-5.1); PROTEIN - SERUM 6.5 g/dL (6.4-8.2); SODIUM 135 mmol/L (136-145); UREA NITROGEN 14 mg/dL (7-18); eGFR NON AFRICAN AMERICAN 39 mL/min (90-120)
[2018-06-07 08:37] LABS: CKMB 1.3 U/L (0.0-3.6); CREATINE KINASE 41 UL (21-215); PRO BNP 714 pg/mL (0-125); TROPONIN-I < 0.017 ng/mL (0.000-0.060)
[2018-06-07] MEDS ORDERED: ATIVAN1 MG PO (09:55)
--- NOTE | 2018-06-07 12:38 | MORECARE ---
CASE MANAGEMENT DISCHARGE SUMMARY PATIENT: LEOBARDO MENDEZ LUIS UNIT: [id number] ADM DATE: 06/07/18 AGE: 72 : 45 SEX: F ROOM/BED: D.2101 AUTHOR: SHELDON BOUDREAUX PHYSICIAN: REFERRING PHYSICIAN: CHRIS NORIEGA DO DATE OF SERVICE: 06/07/18 Discharge Plan Patient Name: LEOBARDO MENDEZ [facility] [facility] 1945 Planned Disposition: Anticipated Discharge Date: Discharge Date: Expected LOS: Initial Reviewer: [email or web address] Initial Review Date: 06/07/2018 Generated: 06/07/18 1:38 pm Patient Name: LEOBARDO MENDEZ Page 15402 at 1238 All edits/amendments must be made on the electronic document DICTATION DATE: 06/07/18 1238 JAVA PROGRAMMING PROFESSOR: LAQUITA 06/07/18 1238 RPT#: [id number] DC DATE: STATUS: ADM IN [facility] [address] [place] [address] END OF REPORT
--- NOTE | 2018-06-07 12:47 | MORECARE ---
CASE MANAGEMENT DISCHARGE SUMMARY PATIENT: LEOBARDO MENDEZ LUIS UNIT: [id number] ADM DATE: 06/07/18 AGE: 72 : 45 SEX: F ROOM/BED: D.2103 AUTHOR: SHELDON BOUDREAUX PHYSICIAN: REFERRING PHYSICIAN: CHRIS NORIEGA DO DATE OF SERVICE: 06/07/18 Discharge Plan Patient Name: LEOBARDO [facility]ENDEZ [facility] 1945 Planned Disposition: Anticipated Discharge Date: Discharge Date: Expected LOS: Initial Reviewer: [email or web address] Initial Review Date: 06/07/2018 Generated: 06/07/18 1:47 pm DCPIA - Discharge Planning Initial Assessment Updated by [email or web address]: Elizabeth Keating on 06/07/18 12:42 pm * Is the patient Alert and Oriented? Yes * How many steps to enter\exit or inside your home? 1 w/o rail * PCP Dr. Juany Lopez (oncology) * Pharmacy [facility], [facility], [place] * Preadmission Environment Home with Family * ADLs Partial Dependent * Partial ADLs (Assistance needed) Ambulation Bathing * Equipment Walker * Other Equipment NA * List name and contact numbers for known caregivers / representatives who currently or will assist patient after discharge: NA * Verbal permission to speak to the caregivers and representatives has been obtained from the patient. Yes * Community resources currently utilized None * Please name any agencies selected above. Request [facility] Will require walk test for home O2 * Additional services required to return to the preadmission environment? Yes * Can the patient safely return to the preadmission environment? Yes * Has this patient been hospitalized within the prior 30 days at any hospital? Yes Last DP export: 06/07/18 11:38 a Patient Name: LEOBARDO MENDEZ Page [phone] at 1247 All edits/amendments must be made on the electronic document DICTATION DATE: 06/07/18 1246 [place] OPERATOR: LAQUITA 06/07/18 1246 RPT#: [id number] DC DATE: STATUS: ADM IN [facility] [address] [place] [address] END OF REPORT
--- NOTE | 2018-06-07 13:09 | MORECARE ---
CASE MANAGEMENT DISCHARGE SUMMARY PATIENT: LEOBARDO THAKUR LUIS UNIT: [id number] ADM DATE: 06/07/18 AGE: 72 : 45 SEX: F ROOM/BED: D.4752 AUTHOR: KANIKA,DOC PHYSICIAN: REFERRING PHYSICIAN: CHRIS NORIEGA DO DATE OF SERVICE: 06/07/18 Discharge Plan Patient Name: LEOBARDO THAKUR Facility: [facility]:[place] : 1945 Planned Disposition: Anticipated Discharge Date: Discharge Date: Expected LOS: Initial Reviewer: [email or web address] Initial Review Date: 06/07/2018 Generated: 06/07/18 2:09 pm Comments DCP- Discharge Planning Updated by [email or web address]: Elizabeth Keating on 06/07/18 12:[address] CM met with patient regarding dc needs/plans. Patient states she is scheduled for a port placement tomorrow @0930 in the outpatient dept. Patient lives in [facility] with her , Wild Thakur (c) #[phone], emergency contact. PCP: Dr. Noriega. Oncology: Dr. Lopez. Surgeon: Dr. Prieto. REQUEST HHS upon discharge. Patient states she requires assistance with bathing, ambulating. States she is able to dress herself. DME: walker. Patient is using O2 at this time and will require WALK TEST for home O2. Permission to speak with spouse, if needed. Patient plans to return to her home with spouse upon discharge. States she is supposed to start chemotherapy next week. CM will follow and assist with dc planning/needs PRN. Elizabeth Keating RN CM DCPIA - Discharge Planning Initial Assessment Updated by [email or web address]: Elizabeth Keating on 06/07/18 12:42 pm * Is the patient Alert and Oriented? Yes * How many steps to enter\exit or inside your home? 1 w/o rail * PCP Dr. Juany Lopez (oncology) * Pharmacy [facility], [facility], [facility] * Preadmission Environment Home with Family * ADLs Partial Dependent * Partial ADLs (Assistance needed) Ambulation Bathing * Equipment Walker * Other Equipment NA * List name and contact numbers for known caregivers / representatives who currently or will assist patient after discharge: NA * Verbal permission to speak to the caregivers and representatives has been obtained from the patient. Yes * Community resources currently utilized None * Please name any agencies selected above. Request [facility] Will require walk test for home O2 * Additional services required to return to the preadmission environment? Yes * Can the patient safely return to the preadmission environment? Yes * Has this patient been hospitalized within the prior 30 days at any hospital? Yes Last DP export: 06/07/18 11:47 a Patient Name: LEOBARDO THAKUR Page [phone] at 1309 All edits/amendments must be made on the electronic document DICTATION DATE: 06/07/18 1309 EXPENSE CLERK: LAQUITA 06/07/18 1309 RPT#: [id number] DC DATE: STATUS: ADM IN [facility] [address] [place] [address] END OF REPORT
[2018-06-07 18:02] VITALS: BP 165/75; BMI 24.8
[2018-06-07 19:24] VITALS: BP 119/61
[2018-06-07 20:20] VITALS: BP 119/69
[2018-06-07 23:37] VITALS: BP 103/42
[2018-06-08] VITALS (11 sets, daily range): BP systolic 104–135; BP diastolic 44–84; Ht 165.1 cm; Wt 67.1 kg
[2018-06-08 04:08] LABS: BASOPHILS 0.3 % (0-2); EOSINOPHILS 3.8 % (0-7); HEMATOCRIT 34.7 % (36.0-48.0); HEMOGLOBIN 11.5 g/dL (12-16); IMMATURE GRANULOCYTES 0.3 % (0-5); LYMPHOCYTES 20.9 % (15-50); MCH 30.9 pg (26.0-34.0); MCHC 33.1 g/dL (31.0-37.0); MCV 93.3 fL (80.0-100.0); MONOCYTES 9.7 % (2-11); PLATELET COUNT 344 10x3/uL (130-400); RBC 3.72 10x6/uL (4.00-5.40); RDW 12.9 % (11.5-14.5); WBC 6.1 10x3/uL (4.8-10.8)
[2018-06-08 04:32] LABS: ANION GAP 11.8 mmol/L (8-16); CARBON DIOXIDE 26.9 mmol/L (21.0-32.0); CREATININE - SERUM 1.2 mg/dL (0.6-1.3); MAGNESIUM - SERUM 2.3 mg/dL (1.8-2.4); PHOSPHOROUS 3.6 mg/dL (2.5-4.9); POTASSIUM - SERUM 3.7 mmol/L (3.5-5.1); URIC ACID 6.1 mg/dL (2.6-7.2)
--- NOTE | 2018-06-08 07:36 | HP ---
PATIENT: LEOBARDO MENDEZ MEDICAL RECORD: [id number] ACCOUNT: [id number] LOCATION:D.MS Bolanos2217 : 45 ADMISSION DATE: 06/07/18 PCP: CHRIS NORIEGA DO HISTORY AND PHYSICAL EXAMINATION HISTORY OF PRESENT ILLNESS: A 72-year-old female presented to the Emergency Room with severe shortness of breath, has a history of right-sided lung cancer, small cell, has had previous admission with right pleural effusion, thoracentesis, and lung biopsy, has had a subsequent MRI of the brain, which showed a small metastatic solitary lesion, also had a PET scan, which showed liver mets. REVIEW OF SYSTEMS: CONSTITUTIONAL: No acute change in weight or appetite. HEENT: No cephalgia, visual changes, tinnitus, epistaxis, or dysphagia. CARDIOVASCULAR: Denies palpitations. PULMONARY: Admits shortness of breath, related to the pleural effusion. GASTROINTESTINAL: Denies chest pressure. GENITOURINARY: Denies dysuria. Pulmonary significant as above. MUSCULOSKELETAL: No acute changes. ENDOCRINE: Denies polyuria, polydipsia, or polyphagia. MEDICATIONS: Per med rec. PHYSICAL EXAMINATION: VITAL SIGNS: Temp 97.7, heart rate 116, respirations 19, blood pressure 165/75, O2 sats 93% on 2 liters via nasal cannula. HEAD: Normocephalic, atraumatic. Eyes: Pupils are equally round and reactive to light and accommodation. Extraocular muscles are intact. Conjunctivae not injected. Ears: Canals patent, TMs are intact. Nose: Nares patent without drainage. Throat: No erythema, no exudates. NECK: Supple. No lymphadenopathy, no JVD. HEART: Regular, tachycardic. LUNGS: Diminished breath sounds on the right. Breathing is nonlabored with supplemental oxygen. ABDOMEN: Soft, nontender. Bowel sounds all 4 quadrants. EXTREMITIES: Present times 4. NEUROLOGIC: No focal deficits. SKIN: Warm and dry. No rash. Initial chest x-ray showed large right pleural effusion, near complete opacification of right lung. The patient underwent CT-guided thoracentesis with removal of 2 liters of serous fluid. Subsequent post-procedure x-ray showed improved appearance right lung with persistent moderate right pleural effusion. LABORATORY DATA: CBC: White count 7.8, hemoglobin 12.6, hematocrit 37.3, platelets 365. INR is 1.08, PTT is 29.3. Chemistry shows a sodium of 135, potassium 3.9, chloride 99, bicarbonate 23.7, creatinine 1.4. Uric acid 7.0, calcium 8.4, AST 41, ALT 34, alkaline phosphatase 69. Troponin less than 0.017. ProBNP 714. ASSESSMENT: 1. Metastatic small cell lung cancer. Her oncologist, Dr. Lopez, is consulted. 2. Thoracentesis, recurrent. HISTORY AND PHYSICAL [id number] LEOBARDO MENDEZ 3. Right pleural effusion status post thoracentesis, recurrent pleural effusion, likely need a repeat thoracentesis with drain placement. The patient will have poor placement tomorrow, will began chemotherapy with subsequent radiation therapy for metastatic lesions to the brain. Supportive care. TRANSINT:[id number] Voice Confirmation ID: [id number] DOCUMENT ID: [id number] CHRIS NORIEGA DO at 0736 CC: [id number] DICTATION DATE: 06/07/181847 SUPERVISOR TYPE DISK QUALITY CONTROL: 06/07/181947 ADM IN [facility] [address] [place] [address]
[2018-06-09 01:01] VITALS: BP 121/58
[2018-06-09 05:25] VITALS: BP 118/57
[2018-06-09 06:48] LABS: ANION GAP 15.9 mmol/L (8-16); CALCIUM 8.2 mg/dL (8.5-10.1); CARBON DIOXIDE 21.7 mmol/L (21.0-32.0); CREATININE - SERUM 1.2 mg/dL (0.6-1.3); MAGNESIUM - SERUM 2.3 mg/dL (1.8-2.4); PHOSPHOROUS 2.8 mg/dL (2.5-4.9)
[2018-06-09 06:51] LABS: POTASSIUM - SERUM 4.6 mmol/L (3.5-5.1)
[2018-06-09 07:13] LABS: HEMATOCRIT 33.1 % (36.0-48.0); HEMOGLOBIN 11.2 g/dL (12-16); LYMPHOCYTES 5.6 % (15-50); MCH 31.7 pg (26.0-34.0); MCHC 33.8 g/dL (31.0-37.0); MCV 93.8 fL (80.0-100.0); MEAN PLATELET VOLUME 10.3 fL (7.4-10.4); NEUTROPHILS 88.4 % (40-80); RBC 3.53 10x6/uL (4.00-5.40); RDW 12.6 % (11.5-14.5)
[2018-06-09 07:14] LABS: PLATELET COUNT 235 10x3/uL (130-400); WBC 10.8 10x3/uL (4.8-10.8)
[2018-06-09 08:30] VITALS: BP 133/71
[2018-06-09 12:30] VITALS: BP 144/91
[2018-06-09 20:00] VITALS: BP 144/70
[2018-06-10] VITALS: BP 125/55
[2018-06-10 04:00] VITALS: BP 126/57
[2018-06-10 05:49] LABS: BASOPHILS 0 % (0-2); EOSINOPHILS 0 % (0-7); HEMATOCRIT 31.5 % (36.0-48.0); HEMOGLOBIN 10.2 g/dL (12-16); IMMATURE GRANULOCYTES 0.3 % (0-5); LYMPHOCYTES 4.5 % (15-50); MCH 30.5 pg (26.0-34.0); MCHC 32.4 g/dL (31.0-37.0); MCV 94.3 fL (80.0-100.0); MEAN PLATELET VOLUME 9.1 fL (7.4-10.4); MONOCYTES 2.2 % (2-11); RBC 3.34 10x6/uL (4.00-5.40); RDW 13.3 % (11.5-14.5); WBC 10.6 10x3/uL (4.8-10.8)
[2018-06-10 06:09] LABS: PLATELET COUNT 317 10x3/uL (130-400)
[2018-06-10 06:18] LABS: BILIRUBIN - TOTAL 0.12 mg/dL (0.2-1.3); CALCIUM 7.9 mg/dL (8.5-10.1); CARBON DIOXIDE 22.8 mmol/L (21.0-32.0); CREATININE - SERUM 1.2 mg/dL (0.6-1.3); POTASSIUM - SERUM 4.8 mmol/L (3.5-5.1); PROTEIN - SERUM 5.5 g/dL (6.4-8.2); URIC ACID 4.3 mg/dL (2.6-7.2)
[2018-06-10 20:46] VITALS: BP 154/75
[2018-06-11] VITALS (8 sets, daily range): BP systolic 131–169; BP diastolic 64–92
[2018-06-11 04:55] LABS: BASOPHILS 0 % (0-2); EOSINOPHILS 0 % (0-7); HEMATOCRIT 30.8 % (36.0-48.0); IMMATURE GRANULOCYTES 0.1 % (0-5); LYMPHOCYTES 4.5 % (15-50); MCH 30.7 pg (26.0-34.0); MCHC 32.5 g/dL (31.0-37.0); MCV 94.5 fL (80.0-100.0); NEUTROPHILS 93.4 % (40-80); PLATELET COUNT 291 10x3/uL (130-400); RBC 3.26 10x6/uL (4.00-5.40); RDW 13.4 % (11.5-14.5); WBC 10.2 10x3/uL (4.8-10.8)
[2018-06-11 05:14] LABS: ANION GAP 13.8 mmol/L (8-16); CARBON DIOXIDE 23.1 mmol/L (21.0-32.0); CREATININE - SERUM 1.1 mg/dL (0.6-1.3); POTASSIUM - SERUM 4.9 mmol/L (3.5-5.1)
[2018-06-11 07:28] LABS: INR 1.09 (0.85-1.17); PROTIME 13.6 SECONDS (11.6-15.0)
[2018-06-11 07:44] LABS: APTT 26.4 SECONDS (22.8-39.4)
--- NOTE | 2018-06-11 15:14 | MORECARE ---
CASE MANAGEMENT DISCHARGE SUMMARY PATIENT: LEOBARDO THAKUR LUIS UNIT: [id number] ADM DATE: 06/07/18 AGE: 72 : 45 SEX: F ROOM/BED: D.2217 AUTHOR: KANIKA,DOC PHYSICIAN: REFERRING PHYSICIAN: CHRIS NORIEGA DO DATE OF SERVICE: 06/11/18 Discharge Plan Patient Name: LEOBARDO THAKUR Facility: [facility]:[place] : 1945 Planned Disposition: Home with Home Health Anticipated Discharge Date: Discharge Date: Expected LOS: Initial Reviewer: [email or web address] Initial Review Date: 06/07/2018 Generated: 06/11/18 4:13 pm DCP- Discharge Planning Updated by [email or web address]: Elizabeth Keating on 06/07/18 12:[address] CM met with patient regarding dc needs/plans. Patient states she is scheduled for a port placement tomorrow @0930 in the outpatient dept. Patient lives in [facility] with her , Wild Thakur (c) #[phone], emergency contact. PCP: Dr. Noriega. Oncology: Dr. Lopez. Surgeon: Dr. Prieto. REQUEST HHS upon discharge. Patient states she requires assistance with bathing, ambulating. States she is able to dress herself. DME: walker. Patient is using O2 at this time and will require WALK TEST for home O2. Permission to speak with spouse, if needed. Patient plans to return to her home with spouse upon discharge. States she is supposed to start chemotherapy next week. CM will follow and assist with dc planning/needs PRN. Elizabeth Keating RN CM DCPIA - Discharge Planning Initial Assessment Updated by [email or web address]: Elizabeth Keating on 06/07/18 12:42 pm * Is the patient Alert and Oriented? Yes * How many steps to enter\exit or inside your home? 1 w/o rail * PCP Dr. Juany Lopez (oncology) * Pharmacy [facility], [facility], [facility] * Preadmission Environment Home with Family * ADLs Partial Dependent * Partial ADLs (Assistance needed) Ambulation Bathing * Equipment Walker * Other Equipment NA * List name and contact numbers for known caregivers / representatives who currently or will assist patient after discharge: NA * Verbal permission to speak to the caregivers and representatives has been obtained from the patient. Yes * Community resources currently utilized None * Please name any agencies selected above. Request [facility] Will require walk test for home O2 * Additional services required to return to the preadmission environment? Yes * Can the patient safely return to the preadmission environment? Yes * Has this patient been hospitalized within the prior 30 days at any hospital? Yes Coverage Notice Reviewer: [email or web address] Chris Lucero Notice Issued Date-Time: 06/11/2018 15:00 Notice Type: IM Discharge Notice Notice Delivered To: Family Member Relationship to Patient: Spouse Materials Planning Analyst Name: wild Delivery Method: HAND - Hand Delivered Meaghan Days: Prior Verbal Notification: Recipient Understood Notice: Yes Recipient Signature: Yes Med Rec Note Co-signed by Attending: Coverage Notice Comment: Last DP export: 06/07/18 12:09 p Patient Name: LEOBARDO THAKUR Page [phone] at 1514 All edits/amendments must be made on the electronic document DICTATION DATE: 06/11/181512 HYDROMETEOROLOGICAL TECHNICIAN: LAQUITA 06/11/181512 RPT#: [id number] DC DATE: STATUS: ADM IN [facility] [address] [place] [address] END OF REPORT
--- NOTE | 2018-06-11 15:23 | MORECARE ---
CASE MANAGEMENT DISCHARGE SUMMARY PATIENT: LEOBARDO THAKUR LUIS UNIT: [id number] ADM DATE: 06/07/18 AGE: 72 : 45 SEX: F ROOM/BED: D.7476 AUTHOR: KANIKA,DOC PHYSICIAN: REFERRING PHYSICIAN: CHRIS NORIEGA DO DATE OF SERVICE: 06/11/18 Discharge Plan Patient Name: LEOBARDO THAKUR Facility: [facility]:[place] : 1945 Planned Disposition: Home with Home Health Anticipated Discharge Date: Discharge Date: Expected LOS: Initial Reviewer: [id number] Initial Review Date: 06/07/2018 Generated: 06/11/18 4:23 pm Comments DCP- Discharge Planning Updated by [id number]: Bernice Lucero on 06/11/18 2:[address] Patient Name: LEOBARDO THAKUR Admission Status: ER Accout number: [id number] Admission Date: 06-07-2018 : 1945 Admission Diagnosis:PLEURAL EFFUSION, NOT ELSEWHERE CLASSIFIED Attending: CHRIS NORIEGA Current LOS: 4 Anticipated DC Date: Planned Disposition: Home with Home Health Primary Insurance: MEDICARE A & B Discharge Planning Comments: CM met with patient and to assess discharge planning needs. Patient stated that she is independent with her care at home. Wicho (spouse) will be the one to take her home. She does have a walker at home . She stated that she will need home o2 and HH with her new pleurex catheter. There are no steps or stairs in her home. JEANA with [employer] and [employer] served and explained. CM spoke with patient's nurse about a walker test for need for home o2. CM will continue to follow and assist with DC planning needs Food Mixer: Bernice Lucero DCP- Discharge Planning Updated by [id number]: Elizabeth Keating on 06/07/18 12:[address] CM met with patient regarding dc needs/plans. Patient states she is scheduled for a port placement tomorrow @0930 in the outpatient dept. Patient lives in [place] with her , Wicho Thakur (c) #[phone], emergency contact. PCP: Dr. Noriega. Oncology: Dr. Lopez. Surgeon: Dr. Prieto. REQUEST HHS upon discharge. Patient states she requires assistance with bathing, ambulating. States she is able to dress herself. DME: walker. Patient is using O2 at this time and will require WALK TEST for home O2. Permission to speak with spouse, if needed. Patient plans to return to her home with spouse upon discharge. States she is supposed to start chemotherapy next week. CM will follow and assist with dc planning/needs PRN. Elizabeth Keating RN CM DCPIA - Discharge Planning Initial Assessment Updated by [email or web address]: Elizabeth Keating on 06/07/18 12:42 pm * Is the patient Alert and Oriented? Yes * How many steps to enter\exit or inside your home? 1 w/o rail * PCP Dr. Juany Lopze (oncology) * [facility] * Preadmission Environment Home with Family * ADLs Partial Dependent * Partial ADLs (Assistance needed) Ambulation Bathing * Equipment Walker * Other Equipment NA * List name and contact numbers for known caregivers / representatives who currently or will assist patient after discharge: NA * Verbal permission to speak to the caregivers and representatives has been obtained from the patient. Yes * Community resources currently utilized None * Please name any agencies selected above. Request HHS Will require walk test for home O2 * Additional services required to return to the preadmission environment? Yes * Can the patient safely return to the preadmission environment? Yes * Has this patient been hospitalized within the prior 30 days at any hospital? Yes Coverage Notice Reviewer: [id number] Chris Lucero Notice Issued Date-Time: 06/11/2018 15:00 Notice Type: IM Discharge Notice Notice Delivered To: Family Member Relationship to Patient: Spouse Tube Builder Name: wicho Delivery Method: HAND - Hand Delivered Meaghan Days: Prior Verbal Notification: Recipient Understood Notice: Yes Recipient Signature: Yes Med Rec Note Co-signed by Attending: Coverage Notice Comment: Last DP export: 06/11/18 2:13 p Patient Name: LEOBARDO THAKUR Page [id number] at 1523 All edits/amendments must be made on the electronic document DICTATION DATE: 06/11/181522 INFORMATION OFFICER: LAQUITA 06/11/181522 RPT#: [id number] DC DATE: STATUS: ADM IN [facility] [address] [place] [address] END OF REPORT
--- NOTE | 2018-06-11 15:31 | MORECARE ---
CASE MANAGEMENT DISCHARGE SUMMARY PATIENT: LEOBARDO THAKUR LUIS UNIT: [id number] ADM DATE: 06/07/18 AGE: 72 : 45 SEX: F ROOM/BED: D.4238 AUTHOR: KANIKA,DOC PHYSICIAN: REFERRING PHYSICIAN: CHRIS NORIEGA DO DATE OF SERVICE: 06/11/18 Discharge Plan Patient Name: LEOBARDO THAKUR Facility: [facility]:[place] : 1945 Planned Disposition: Home with Home Health Anticipated Discharge Date: Discharge Date: Expected LOS: Initial Reviewer: [id number] Initial Review Date: 06/07/2018 Generated: 06/11/18 4:31 pm Comments DCP- Discharge Planning Updated by [id number]: Bernice Lucero on 06/11/18 2:[address] Patient Name: LEOBARDO THAKUR Admission Status: ER Accout number: [id number] Admission Date: 06-07-2018 : 1945 Admission Diagnosis:PLEURAL EFFUSION, NOT ELSEWHERE CLASSIFIED Attending: CHRIS NORIEGA Current LOS: 4 Anticipated DC Date: Planned Disposition: Home with Home Health Primary Insurance: MEDICARE A & B Discharge Planning Comments: CM met with patient and to assess discharge planning needs. Patient stated that she is independent with her care at home. Wicho (spouse) will be the one to take her home. She does have a walker at home . She stated that she will need home o2 and HH with her new pleurex catheter. There are no steps or stairs in her home. JEANA with [employer] and [employer] served and explained. CM spoke with patient's nurse about a walker test for need for home o2. CM will continue to follow and assist with DC planning needs Program Lead: Bernice Lucero DCP- Discharge Planning Updated by [id number]: Elizabeth Keating on 06/07/18 12:[address] CM met with patient regarding dc needs/plans. Patient states she is scheduled for a port placement tomorrow @0930 in the outpatient dept. Patient lives in [place] with her , Wicho Thakur (c) #[phone], emergency contact. PCP: Dr. Noriega. Oncology: Dr. Lopez. Surgeon: Dr. Prieto. REQUEST HHS upon discharge. Patient states she requires assistance with bathing, ambulating. States she is able to dress herself. DME: walker. Patient is using O2 at this time and will require WALK TEST for home O2. Permission to speak with spouse, if needed. Patient plans to return to her home with spouse upon discharge. States she is supposed to start chemotherapy next week. CM will follow and assist with dc planning/needs PRN. Elizabeth Keating RN CM DCPIA - Discharge Planning Initial Assessment Updated by [id number]: Elizabeth Keating on 06/07/18 12:42 pm * Is the patient Alert and Oriented? Yes * How many steps to enter\exit or inside your home? 1 w/o rail * PCP Dr. Juany Lopez (oncology) * [facility], [facility], [facility] * Preadmission Environment Home with Family * ADLs Partial Dependent * Partial ADLs (Assistance needed) Ambulation Bathing * Equipment Walker * Other Equipment NA * List name and contact numbers for known caregivers / representatives who currently or will assist patient after discharge: NA * Verbal permission to speak to the caregivers and representatives has been obtained from the patient. Yes * Community resources currently utilized None * Please name any agencies selected above. Request HHS Will require walk test for home O2 * Additional services required to return to the preadmission environment? Yes * Can the patient safely return to the preadmission environment? Yes * Has this patient been hospitalized within the prior 30 days at any hospital? Yes External Providers External Provider: [facility] Next Contact Date: Service Request Date: Service Type: Resolution: Reviewer: Comments: Coverage Notice Reviewer: [id number] - Bernice Lucero Notice Issued Date-Time: 06/11/2018 15:00 Notice Type: IM Discharge Notice Notice Delivered To: Family Member Relationship to Patient: Spouse Web Development Director Name: wicho Delivery Method: HAND - Hand Delivered Meaghan Days: Prior Verbal Notification: Recipient Understood Notice: Yes Recipient Signature: Yes Med Rec Note Co-signed by Attending: Coverage Notice Comment: Last DP export: 06/11/18 2:23 p Patient Name: LEOBARDO THAKUR Page [id number] at 1531 All edits/amendments must be made on the electronic document DICTATION DATE: 06/11/18 153 LIBRARY AIDE: DM 06/11/18 1531 RPT#: [id number] DC DATE: STATUS: ADM IN [facility] [address] [place] [address] END OF REPORT
--- NOTE | 2018-06-11 15:40 | MORECARE ---
CASE MANAGEMENT DISCHARGE SUMMARY PATIENT: LEOBARDO THAKUR LUIS UNIT: [id number] ADM DATE: 06/07/18 AGE: 72 : 45 SEX: F ROOM/BED: D.8523 AUTHOR: KANIKA,DOC PHYSICIAN: REFERRING PHYSICIAN: CHRIS NORIEGA DO DATE OF SERVICE: 06/11/18 Discharge Plan Patient Name: LEOBARDO THAKUR Facility: [facility]:[place] : 1945 Planned Disposition: Home with Home Health Anticipated Discharge Date: Discharge Date: Expected LOS: Initial Reviewer: [email or web address] Initial Review Date: 06/07/2018 Generated: 06/11/18 4:40 pm Comments DCP- Discharge Planning Updated by [email or web address]: Bernice uLcero on 06/11/18 2:[address] SENT CLINICAL TO [facility] AND SEND FACESHEET TO [facility] PATIENT BECAUSE PATIENT'S SPOUSE STATED THAT DR NORIEGA HAD ALREADY STARTED THE PROCESS TO GET HER QUALIFIED FOR HOME O2 CM WILL CONTINUE TO FOLLOW AND ASSIST DCP- Discharge Planning Updated by [id number]: Bernice Lucero on 06/11/18 2:[address] Patient Name: LEOBARDO THAKUR Admission Status: ER Accout number: [id number] Admission Date: 06-07-2018 : 1945 Admission Diagnosis:PLEURAL EFFUSION, NOT ELSEWHERE CLASSIFIED Attending: CHRIS NORIEGA Current LOS: 4 Anticipated DC Date: Planned Disposition: Home with Home Health Primary Insurance: MEDICARE A & B Discharge Planning Comments: CM met with patient and to assess discharge planning needs. Patient stated that she is independent with her care at home. Wicho (spouse) will be the one to take her home. She does have a walker at home . She stated that she will need home o2 and HH with her new pleurex catheter. There are no steps or stairs in her home. JEANA with [place] and [facility] served and explained. CM spoke with patient's nurse about a walker test for need for home o2. CM will continue to follow and assist with DC planning needs Soubrette: Bernice Lucero DCP- Discharge Planning Updated by [id number]: Elizabeth Keating on 06/07/18 12:[address] CM met with patient regarding dc needs/plans. Patient states she is scheduled for a port placement tomorrow @0930 in the outpatient dept. Patient lives in [facility] with her , Wicho Thakur (c) #[phone], emergency contact. PCP: Dr. Noriega. Oncology: Dr. Lopez. Surgeon: Dr. Prieto. REQUEST HHS upon discharge. Patient states she requires assistance with bathing, ambulating. States she is able to dress herself. DME: walker. Patient is using O2 at this time and will require WALK TEST for home O2. Permission to speak with spouse, if needed. Patient plans to return to her home with spouse upon discharge. States she is supposed to start chemotherapy next week. CM will follow and assist with dc planning/needs PRN. Elizabeth Keating RN CM DCPIA - Discharge Planning Initial Assessment Updated by [email or web address]: Elizabeth Keating on 06/07/18 12:42 pm * Is the patient Alert and Oriented? Yes * How many steps to enter\exit or inside your home? 1 w/o rail * PCP Dr. Juany Lopez (oncology) * Pharmacy [facility], [facility], [facility] * Preadmission Environment Home with Family * ADLs Partial Dependent * Partial ADLs (Assistance needed) Ambulation Bathing * Equipment Walker * Other Equipment NA * List name and contact numbers for known caregivers / representatives who currently or will assist patient after discharge: NA * Verbal permission to speak to the caregivers and representatives has been obtained from the patient. Yes * Community resources currently utilized None * Please name any agencies selected above. Request HHS Will require walk test for home O2 * Additional services required to return to the preadmission environment? Yes * Can the patient safely return to the preadmission environment? Yes * Has this patient been hospitalized within the prior 30 days at any hospital? Yes External Providers External Provider: [facility] Next Contact Date: Service Request Date: Service Type: Resolution: Reviewer: Comments: Coverage Notice Reviewer: [id number] - Bernice Lucero Notice Issued Date-Time: 06/11/2018 15:00 Notice Type: IM Discharge Notice Notice Delivered To: Family Member Relationship to Patient: Spouse Automatic Gluing Machine Operator Name: wicho Delivery Method: HAND - Hand Delivered Meaghan Days: Prior Verbal Notification: Recipient Understood Notice: Yes Recipient Signature: Yes Med Rec Note Co-signed by Attending: Coverage Notice Comment: Last DP export: 06/11/18 2:31 p Patient Name: LEOBARDO THAKUR Page [id number] at 1540 All edits/amendments must be made on the electronic document DICTATION DATE: 06/11/18 1540 RECORDS ANALYSIS MANAGER: LAQUITA 06/11/18 1540 RPT#: [id number] DC DATE: STATUS: ADM IN [facility] [address] [place] [address] END OF REPORT
[2018-06-12 04:00] VITALS: BP 142/59
[2018-06-12 04:51] LABS: BASOPHILS 0 % (0-2); EOSINOPHILS 4.2 % (0-7); HEMATOCRIT 33.9 % (36.0-48.0); IMMATURE GRANULOCYTES 0.1 % (0-5); MCH 30.8 pg (26.0-34.0); MCHC 32.4 g/dL (31.0-37.0); MONOCYTES 0.1 % (2-11); NEUTROPHILS 78.6 % (40-80); PLATELET COUNT 272 10x3/uL (130-400); RBC 3.57 10x6/uL (4.00-5.40); RDW 13.4 % (11.5-14.5)
[2018-06-12 04:52] LABS: WBC 7.1 10x3/uL (4.8-10.8)
[2018-06-12 05:20] LABS: ANION GAP 11.4 mmol/L (8-16); CALCIUM 8.3 mg/dL (8.5-10.1); POTASSIUM - SERUM 4.4 mmol/L (3.5-5.1)
[2018-06-12 08:28] VITALS: BP 140/65
--- NOTE | 2018-06-12 09:54 | MORECARE ---
CASE MANAGEMENT DISCHARGE SUMMARY PATIENT: LEOBARDO THAKUR LUIS UNIT: [id number] ADM DATE: 06/07/18 AGE: 72 : 45 SEX: F ROOM/BED: D.8721 AUTHOR: KANIKA,DOC PHYSICIAN: REFERRING PHYSICIAN: CHRIS NORIEGA DO DATE OF SERVICE: 06/12/18 Discharge Plan Patient Name: LEOBARDO THAKUR Facility: [facility]:[place] : 1945 Planned Disposition: Home with Home Health Anticipated Discharge Date: Discharge Date: Expected LOS: Initial Reviewer: [email or web address] Initial Review Date: 06/07/2018 Generated: 06/12/18 10:54 am Comments DCP- Discharge Planning Updated by [email or web address]: Bernice Lucero on 06/11/18 2:[address] SENT CLINICAL TO [facility] AND SEND FACESHEET TO [facility] PATIENT BECAUSE PATIENT'S SPOUSE STATED THAT DR NORIEGA HAD ALREADY STARTED THE PROCESS TO GET HER QUALIFIED FOR HOME O2 CM WILL CONTINUE TO FOLLOW AND ASSIST DCP- Discharge Planning Updated by [id number]: Bernice Lucero on 06/11/18 2:[address] Patient Name: LEOBARDO THAKUR Admission Status: ER Accout number: [id number] Admission Date: 06-07-2018 : 1945 Admission Diagnosis:PLEURAL EFFUSION, NOT ELSEWHERE CLASSIFIED Attending: CHRIS NORIEGA Current LOS: 4 Anticipated DC Date: Planned Disposition: Home with Home Health Primary Insurance: MEDICARE A & B Discharge Planning Comments: CM met with patient and to assess discharge planning needs. Patient stated that she is independent with her care at home. Wicho (spouse) will be the one to take her home. She does have a walker at home . She stated that she will need home o2 and HH with her new pleurex catheter. There are no steps or stairs in her home. JEANA with [place] and [facility] served and explained. CM spoke with patient's nurse about a walker test for need for home o2. CM will continue to follow and assist with DC planning needs Information Resources Director: Bernice Lucero DCP- Discharge Planning Updated by [email or web address]: Elizabeth Keating on 06/07/18 12:[address] CM met with patient regarding dc needs/plans. Patient states she is scheduled for a port placement tomorrow @0930 in the outpatient dept. Patient lives in [place] with her , Wicho Thakur (c) #[phone], emergency contact. PCP: Dr. Noriega. Oncology: Dr. Lopez. Surgeon: Dr. Prieto. REQUEST HHS upon discharge. Patient states she requires assistance with bathing, ambulating. States she is able to dress herself. DME: walker. Patient is using O2 at this time and will require WALK TEST for home O2. Permission to speak with spouse, if needed. Patient plans to return to her home with spouse upon discharge. States she is supposed to start chemotherapy next week. CM will follow and assist with dc planning/needs PRN. Elizabeth Keating RN CM DCPIA - Discharge Planning Initial Assessment Updated by [email or web address]: Elizabeth Keating on 06/07/18 12:42 pm * Is the patient Alert and Oriented? Yes * How many steps to enter\exit or inside your home? 1 w/o rail * PCP Dr. Juany Lopez (oncology) * Pharmacy [facility], [facility], [facility] * Preadmission Environment Home with Family * ADLs Partial Dependent * Partial ADLs (Assistance needed) Ambulation Bathing * Equipment Walker * Other Equipment NA * List name and contact numbers for known caregivers / representatives who currently or will assist patient after discharge: NA * Verbal permission to speak to the caregivers and representatives has been obtained from the patient. Yes * Community resources currently utilized None * Please name any agencies selected above. Request HHS Will require walk test for home O2 * Additional services required to return to the preadmission environment? Yes * Can the patient safely return to the preadmission environment? Yes * Has this patient been hospitalized within the prior 30 days at any hospital? Yes External Providers External Provider: [facility] Next Contact Date: Service Request Date: Service Type: Resolution: Reviewer: Comments: Coverage Notice Reviewer: [id number] - Bernice Lucero Notice Issued Date-Time: 06/11/2018 15:00 Notice Type: IM Discharge Notice Notice Delivered To: Family Member Relationship to Patient: Spouse Medical Records Field Technician Name: wicho Delivery Method: HAND - Hand Delivered Meaghan Days: Prior Verbal Notification: Recipient Understood Notice: Yes Recipient Signature: Yes Med Rec Note Co-signed by Attending: Coverage Notice Comment: Last DP export: 06/11/18 2:40 p Patient Name: LEOBARDO THAKUR Page [id number] at 0954 All edits/amendments must be made on the electronic document DICTATION DATE: 06/12/18952 FURNACE OPERATOR: LAQUITA 06/12/18952 RPT#: [id number] DC DATE: STATUS: ADM IN [facility] [address] [place] [address] END OF REPORT
--- NOTE | 2018-06-12 10:02 | MORECARE ---
CASE MANAGEMENT DISCHARGE SUMMARY PATIENT: LEOBARDO THAKUR UNIT: [id number] ADM DATE: 06/07/18 AGE: 72 : 45 SEX: F ROOM/BED: D.2217 AUTHOR: KANIKA,DOC PHYSICIAN: REFERRING PHYSICIAN: CHRIS NORIEGA DO DATE OF SERVICE: 06/12/18 Discharge Plan Patient Name: LEOBARDO THAKUR Facility: [facility]:[place] : 1945 Planned Disposition: Home with Home Health Anticipated Discharge Date: Discharge Date: Expected LOS: Initial Reviewer: [id number] Initial Review Date: 06/07/2018 Generated: 06/12/18 11:01 am Comments DCP- Discharge Planning Updated by [email or web address]: Bernice Lucero on 06/12/18 8:[address] PATIENT DISCHARGING HOME TODAY, WILL HAVE HOME O2 FROM [facility] PATIENT. THEY WILL DELIVER THE PORTABLE O2 TO THE HOSPITAL AND THEN HOME O2. PATIENT DOES NOT QUALIFY FOR NEBULIZER, DR NORIEGA IS AWARE. PATIENT WILL HAVE HOME HE[facility]IA [facility] IR AT [facility] FOR PLUREX CATHETER CARE AND TEACHING. SHE WILL BE SENT HOME WITH SOME SUPPLIES THEN GET THE REST FROM [facility]. ETELVINA ELIZONDO CM WILL CONTINUE TO FOLLOW AND ASSIST WITH DC PLANNING NEEDED DCP- Discharge Planning Updated by [email or web address]: Bernice Lucero on 06/11/18 2:[address] SENT CLINICAL [facility] AND SEND FACESHEET TO [facility] PATIENT BECAUSE PATIENT'S SPOUSE STATED THAT DR NORIEGA HAD ALREADY STARTED THE PROCESS TO GET HER QUALIFIED FOR HOME O2 CM WILL CONTINUE TO FOLLOW AND ASSIST DCP- Discharge Planning Updated by [email or web address]: Bernice Lucero on 06/11/18 2:[address] Patient Name: LEOBARDO THAKUR Admission Status: ER Accout number: [id number] Admission Date: 06-07-2018 : 1945 Admission Diagnosis:PLEURAL EFFUSION, NOT ELSEWHERE CLASSIFIED Attending: CHRIS NORIEGA Current LOS: 4 Anticipated DC Date: Planned Disposition: Home with Home Health Primary Insurance: MEDICARE A & B Discharge Planning Comments: CM met with patient and to assess discharge planning needs. Patient stated that she is independent with her care at home. Wicho (spouse) will be the one to take her home. She does have a walker at home . She stated that she will need home o2 and HH with her new pleurex catheter. There are no steps or stairs in her home. JEANA with [employer] and [employer] served and explained. CM spoke with patient's nurse about a walker test for need for home o2. CM will continue to follow and assist with DC planning needs Telecommunications Engineer: Bernice Lucero DCP- Discharge Planning Updated by [id number]: Elizabeth Keating on 06/07/18 12:[address] CM met with patient regarding dc needs/plans. Patient states she is scheduled for a port placement tomorrow @0930 in the outpatient dept. Patient lives in [facility] with her , Wicho Thakur (c) #[phone], emergency contact. PCP: Dr. Noriega. Oncology: Dr. Lopez. Surgeon: Dr. Prieto. REQUEST HHS upon discharge. Patient states she requires assistance with bathing, ambulating. States she is able to dress herself. DME: walker. Patient is using O2 at this time and will require WALK TEST for home O2. Permission to speak with spouse, if needed. Patient plans to return to her home with spouse upon discharge. States she is supposed to start chemotherapy next week. CM will follow and assist with dc planning/needs PRN. Elizabeth Keating RN, CM DCPIA - Discharge Planning Initial Assessment Updated by [email or web address]: Elizabeth Keating on 06/07/18 12:42 pm * Is the patient Alert and Oriented? Yes * How many steps to enter\exit or inside your home? 1 w/o rail * PCP Dr. Juany Lopez (oncology) * Pharmacy [facility], [facility], [facility] * Preadmission Environment Home with Family * ADLs Partial Dependent * Partial ADLs (Assistance needed) Ambulation Bathing * Equipment Walker * Other Equipment NA * List name and contact numbers for known caregivers / representatives who currently or will assist patient after discharge: NA * Verbal permission to speak to the caregivers and representatives has been obtained from the patient. Yes * Community resources currently utilized None * Please name any agencies selected above. Request HHS Will require walk test for home O2 * Additional services required to return to the preadmission environment? Yes * Can the patient safely return to the preadmission environment? Yes * Has this patient been hospitalized within the prior 30 days at any hospital? Yes Coverage Notice Reviewer: [id number] - Bernice Lucero Notice Issued Date-Time: 06/11/2018 15:00 Notice Type: IM Discharge Notice Notice Delivered To: Family Member Relationship to Patient: Spouse Utility Tech Name: wicho Delivery Method: HAND - Hand Delivered Meaghan Days: Prior Verbal Notification: Recipient Understood Notice: Yes Recipient Signature: Yes Med Rec Note Co-signed by Attending: Coverage Notice Comment: Last DP export: 06/12/18 8:54 a Patient Name: LEOBARDO THAKUR Page [id number] at 1002 All edits/amendments must be made on the electronic document DICTATION DATE: 06/12/18 100 LEAD ORACLE DEVELOPER: LAQUITA 06/12/18 1001 RPT#: [id number] DC DATE: STATUS: ADM IN [facility] [address] [place] [address] END OF REPORT
--- NOTE | 2018-06-12 11:32 | MORECARE ---
CASE MANAGEMENT DISCHARGE SUMMARY PATIENT: LEOBARDO THAKUR UNIT: [id number] ADM DATE: 06/07/18 AGE: 72 : 45 SEX: F ROOM/BED: D.3254 AUTHOR: KANIKA,DOC PHYSICIAN: REFERRING PHYSICIAN: CHRIS NORIEGA DO DATE OF SERVICE: 06/12/18 Discharge Plan Patient Name: LEOBARDO THAKUR Facility: [facility]:[place] : 1945 Planned Disposition: Home with Home Health Anticipated Discharge Date: Discharge Date: Expected LOS: Initial Reviewer: [email or web address] Initial Review Date: 06/07/2018 Generated: 06/12/18 12:31 pm Comments DCP- Discharge Planning Updated by [email or web address]: Bernice Lucero on 06/12/18 10:[address] SPOKE JONY BARRON AT [facility] AND INFORMED HER OF ALL THE PLEURX PER IR. THEY WILL GO SEE PATIENT TOMORROW AND ON MONDAY. PORTABLE O2 HERE AT BEDSIDE. THEY WILL DELIVER O2 TO HOME. FROM [facility] PATIENT. CM WILL CONTINUE TO FOLLOW AND ASSIST WITH DC PLANNING DCP- Discharge Planning Updated by [email or web address]: Bernice Lucero on 06/12/18 8:[address] PATIENT DISCHARGING HOME TODAY, WILL HAVE HOME O2 FROM [facility]. THEY WILL DELIVER THE PORTABLE O2 TO THE HOSPITAL AND THEN HOME O2. PATIENT DOES NOT QUALIFY FOR NEBULIZER, DR NORIEGA IS AWARE. PATIENT WILL HAVE HOME HEALTH VIA [facility]. [facility] WITH IR AT BEDSIDE FOR PLUREX CATHETER CARE AND TEACHING. SHE WILL BE SENT HOME WITH SOME SUPPLIES THEN GET THE REST FROM [facility]. ETELVINA AWARE CM WILL CONTINUE TO FOLLOW AND ASSIST WITH DC PLANNING NEEDED DCP- Discharge Planning Updated by [email or web address]: Bernice Lucero on 06/11/18 2:[address] SENT CLINICAL TO [facility] AND SEND FACESHEET TO [facility] BECAUSE PATIENT'S SPOUSE STATED THAT DR NORIEGA HAD ALREADY STARTED THE PROCESS TO GET HER QUALIFIED FOR HOME O2 CM WILL CONTINUE TO FOLLOW AND ASSIST DCP- Discharge Planning Updated by [email or web address]: Bernice Lucero on 06/11/18 2:[address] Patient Name: LEOBARDO THAKUR Admission Status: ER Accout number: [id number] Admission Date: 06-07-2018 : 1945 Admission Diagnosis:PLEURAL EFFUSION, NOT ELSEWHERE CLASSIFIED Attending: CHRIS NORIEGA Current LOS: 4 Anticipated DC Date: Planned Disposition: Home with Home Health Primary Insurance: MEDICARE A & B Discharge Planning Comments: CM met with patient and to assess discharge planning needs. Patient stated that she is independent with her care at home. Wicho (spouse) will be the one to take her home. She does have a walker at home . She stated that she will need home o2 and HH with her new pleurex catheter. There are no steps or stairs in her home. JEANA with [facility] served and explained. CM spoke with patient's nurse about a walker test for need for home o2. CM will continue to follow and assist with DC planning needs Fiberglass Boat Finisher: Bernice Lucero DCP- Discharge Planning Updated by [email or web address]: Elizabeth Keating on 06/07/18 12:[address] CM met with patient regarding dc needs/plans. Patient states she is scheduled for a port placement tomorrow @0930 in the outpatient dept. Patient lives in [facility] with her , Wicho Thakur (c) #[phone], emergency contact. PCP: Dr. Noriega. Oncology: Dr. Lopez. Surgeon: Dr. Prieto. REQUEST HHS upon discharge. Patient states she requires assistance with bathing, ambulating. States she is able to dress herself. DME: walker. Patient is using O2 at this time and will require WALK TEST for home O2. Permission to speak with spouse, if needed. Patient plans to return to her home with spouse upon discharge. States she is supposed to start chemotherapy next week. CM will follow and assist with dc planning/needs PRN. Elizabeth Keating RN, CM DCPIA - Discharge Planning Initial Assessment Updated by [id number]: Elizabeth Keating on 06/07/18 12:42 pm * Is the patient Alert and Oriented? Yes * How many steps to enter\exit or inside your home? 1 w/o rail * PCP Dr. Juany Lopez (oncology) * Pharmacy [facility], [facility], [facility] * Preadmission Environment Home with Family * ADLs Partial Dependent * Partial ADLs (Assistance needed) Ambulation Bathing * Equipment Walker * Other Equipment NA * List name and contact numbers for known caregivers / representatives who currently or will assist patient after discharge: NA * Verbal permission to speak to the caregivers and representatives has been obtained from the patient. Yes * Community resources currently utilized None * Please name any agencies selected above. Request HHS Will require walk test for home O2 * Additional services required to return to the preadmission environment? Yes * Can the patient safely return to the preadmission environment? Yes * Has this patient been hospitalized within the prior 30 days at any hospital? Yes Coverage Notice Reviewer: [id number] Chris Lucero Notice Issued Date-Time: 06/11/2018 15:00 Notice Type: IM Discharge Notice Notice Delivered To: Family Member Relationship to Patient: Spouse Grievance Manager Name: wicho Delivery Method: HAND - Hand Delivered Meaghan Days: Prior Verbal Notification: Recipient Understood Notice: Yes Recipient Signature: Yes Med Rec Note Co-signed by Attending: Coverage Notice Comment: Last DP export: 06/12/18 9:01 a Patient Name: LEOBARDO THAKUR Page [phone] at 1132 All edits/amendments must be made on the electronic document DICTATION DATE: 06/12/18 1131 CARE ASST: LAQUITA 06/12/18 1131 RPT#: [id number] DC DATE: STATUS: ADM IN [facility] [address] [place] [address] END OF REPORT
--- NOTE | 2018-06-13 08:07 | MORECARE ---
CASE MANAGEMENT DISCHARGE SUMMARY PATIENT: LEOBARDO THAKUR UNIT: [id number] ADM DATE: 06/07/18 AGE: 72 : 45 SEX: F ROOM/BED: D.2556 AUTHOR: KANIKA,DOC PHYSICIAN: REFERRING PHYSICIAN: CHRIS NORIEGA DO DATE OF SERVICE: 06/13/18 Discharge Plan Patient Name: LEOBARDO THAKUR Facility: [facility]:[place] : 1945 Planned Disposition: Home with Home Health Anticipated Discharge Date: Discharge Date: 06/12/2018 Expected LOS: 0 Initial Reviewer: [email or web address] Initial Review Date: 06/07/2018 Generated: 06/13/18 9:07 am Comments DCP- Discharge Planning Updated by [email or web address]: Bernice Lucero on 06/12/18 10:[address] SPOKE JONY BARRON AT [facility] AND INFORMED HER OF ALL THE PLEURX PER IR. THEY WILL GO SEE PATIENT TOMORROW AND ON MONDAY. PORTABLE O2 HERE AT BEDSIDE. THEY WILL DELIVER O2 TO HOME. FROM [facility] PATIENT. CM WILL CONTINUE TO FOLLOW AND ASSIST WITH DC PLANNING DCP- Discharge Planning Updated by [email or web address]: Bernice Lucero on 06/12/18 8:[address] PATIENT DISCHARGING HOME TODAY, WILL HAVE HOME O2 FROM [facility]. THEY WILL DELIVER THE PORTABLE O2 TO THE HOSPITAL AND THEN HOME O2. PATIENT DOES NOT QUALIFY FOR NEBULIZER, DR NORIEGA IS AWARE. PATIENT [facility] HAVE [facility] HE[facility] WITH IR AT BEDSIDE FOR PLUREX CATHETER CARE AND TEACHING. SHE WILL BE SENT HOME WITH SOME SUPPLIES THEN GET THE REST FROM [facility]. ETELVINA AWARE CM WILL CONTINUE TO FOLLOW AND ASSIST WITH DC PLANNING NEEDED DCP- Discharge Planning Updated by [email or web address]: Bernice Lucero on 06/11/18 2:[address] SENT CLINICAL TO [facility] AND SEND FACESHEET TO [facility] BECAUSE PATIENT'S SPOUSE STATED THAT DR NORIEGA HAD ALREADY STARTED THE PROCESS TO GET HER QUALIFIED FOR HOME O2 CM WILL CONTINUE TO FOLLOW AND ASSIST DCP- Discharge Planning Updated by [email or web address]: Bernice Lucero on 06/11/18 2:[address] Patient Name: LEOBARDO THAKUR Admission Status: ER Accout number: [id number] Admission Date: 06-07-2018 : 1945 Admission Diagnosis:PLEURAL EFFUSION, NOT ELSEWHERE CLASSIFIED Attending: CHRIS NORIEGA Current LOS: 4 Anticipated DC Date: Planned Disposition: Home with Home Health Primary Insurance: MEDICARE A & B Discharge Planning Comments: CM met with patient and to assess discharge planning needs. Patient stated that she is independent with her care at home. Wicho (spouse) will be the one to take her home. She does have a walker at home . She stated that she will need home o2 and HH with her new pleurex catheter. There are no steps or stairs in her home. JEANA with [facility] served and explained. CM spoke with patient's nurse about a walker test for need for home o2. CM will continue to follow and assist with DC planning needs Pie Maker Machine: Bernice Lucero DCP- Discharge Planning Updated by [email or web address]: Elizabeth Keating on 06/07/18 12:[address] CM met with patient regarding dc needs/plans. Patient states she is scheduled for a port placement tomorrow @0930 in the outpatient dept. Patient lives in [facility] with her , Wicho Thakur (c) #[phone], emergency contact. PCP: Dr. Noriega. Oncology: Dr. Lopez. Surgeon: Dr. Prieto. REQUEST HHS upon discharge. Patient states she requires assistance with bathing, ambulating. States she is able to dress herself. DME: walker. Patient is using O2 at this time and will require WALK TEST for home O2. Permission to speak with spouse, if needed. Patient plans to return to her home with spouse upon discharge. States she is supposed to start chemotherapy next week. CM will follow and assist with dc planning/needs PRN. Elizabeth Keating RN, CM DCPIA - Discharge Planning Initial Assessment Updated by [email or web address]: Elizabeth Keating on 06/07/18 12:42 pm * Is the patient Alert and Oriented? Yes * How many steps to enter\exit or inside your home? 1 w/o rail * PCP Dr. Juany Lopez (oncology) * Pharmacy [facility], [facility], [facility] * Preadmission Environment Home with Family * ADLs Partial Dependent * Partial ADLs (Assistance needed) Ambulation Bathing * Equipment Walker * Other Equipment NA * List name and contact numbers for known caregivers / representatives who currently or will assist patient after discharge: NA * Verbal permission to speak to the caregivers and representatives has been obtained from the patient. Yes * Community resources currently utilized None * Please name any agencies selected above. Request HHS Will require walk test for home O2 * Additional services required to return to the preadmission environment? Yes * Can the patient safely return to the preadmission environment? Yes * Has this patient been hospitalized within the prior 30 days at any hospital? Yes Coverage Notice Reviewer: [email or web address] Chris Lucero Notice Issued Date-Time: 06/11/2018 15:00 Notice Type: IM Discharge Notice Notice Delivered To: Family Member Relationship to Patient: Spouse Lpn Home Health Name: wicho Delivery Method: HAND - Hand Delivered Meaghan Days: Prior Verbal Notification: Recipient Understood Notice: Yes Recipient Signature: Yes Med Rec Note Co-signed by Attending: Coverage Notice Comment: Last DP export: 06/12/18 10:31 a Patient Name: LEOBARDO THAKUR Page [phone] at 0807 All edits/amendments must be made on the electronic document DICTATION DATE: 06/13/18805 PAINT PROCESS ENGINEER: LAQUITA 06/13/18805 RPT#: [id number] DC DATE:06/12/18 STATUS: DIS IN [facility] [address] [place] [address] END OF REPORT
--- NOTE | 2018-06-13 08:12 | DS ---
PATIENT:LEOBARDO MENDEZ :[birth year] MEDICAL RECORD: [id number] DISCHARGE SUMMARY ADMISSION DATE: 06/07/18 DISCHARGE DATE: 06/12/18 DATE OF ADMISSION: 06/07/2018 DATE OF DISCHARGE: 06/12/2018 ADMISSION DIAGNOSES: Recurrent pleural effusion, metastatic lung cancer, small cell. DISCHARGE DIAGNOSES: Recurrent right pleural effusion, metastatic lung cancer. CONSULTS: Dr. Lopez oncology, interventional radiology for thoracentesis, surgery for port placement. HOSPITAL COURSE: The patient was admitted with worsening shortness of breath, history of recurrent pleural effusion, recently diagnosed lung cancer, underwent CT-guided thoracentesis with removal of 2 liters of serous fluid, had recurrence of the effusion. Chest tube placed with drain, port placed. The patient has undergone chemotherapy in the hospital, had been cleared for discharge by oncology, will undergo radiation treatment as outpatient. Will have home O2 and home health. The patient is discharged to home in stable condition. PHYSICAL EXAMINATION: VITAL SIGNS ON DISCHARGE: Temperature 98.2, blood pressure is 142/59, heart rate 82, respirations 18, O2 sats 94% with 2 liters. HEART: Regular rate and rhythm. LUNGS: Breathing is nonlabored with supplemental O2. ABDOMEN: Soft. EXTREMITIES: Present times 4. NEUROLOGIC: Intact. LABORATORY DATA: CBC: White count 7.1, hemoglobin 11, hematocrit 33.9. Chemistry shows a sodium of 137, potassium 4.4, chloride 104, bicarbonate 26, BUN 23, creatinine 1.0. Chest tube in place with drain. The patient will be instructed on use prior to discharge. restaurant hourly manager consulted to assist with discharge, arrange home O2, home health and oxygen for transport home. See chart for further details. TRANSINT:[id number] Voice Confirmation ID: [id number] DOCUMENT ID: [id number] CHRIS NORIEGA DO at 0812 CC: [id number] DICTATION DATE: 06/12/18 0755 OUTBOUND TELEMARKETER: 06/12/18 0820 DIS IN 06/12/18 [facility] [address] [place] [id number]
== END 2018-06-12 13:31 | disposition home health service (06) | DRG 181 ==
LOC: D.ER 07:35 → D.MS 11:47 → D.M2 11:47 → D.EDHOLD 11:47 → D.M2 12:15 → D.MS 14:32
PROVIDERS: Emergency Medicine; Family Medicine; General Practice; Internal Medicine Hematology & Oncology; ADMIT Family Medicine
PROC: 0W993ZZ Drainage of Right Pleural Cavity, Percutaneous Approach (ICD-10-PCS; principal; 2018-06-07 15:19)
PROC: 0JH63XZ Insertion of Tunneled Vascular Access Device into Chest Subcutaneous Tissue and Fascia, Percutaneous Approach (ICD-10-PCS; 2018-06-08)
PROC: 02HV33Z Insertion of Infusion Device into Superior Vena Cava, Percutaneous Approach (ICD-10-PCS; 2018-06-08)
PROC: B5181ZA Fluoroscopy of Superior Vena Cava using Low Osmolar Contrast, Guidance (ICD-10-PCS; 2018-06-08)
PROC: 0W9930Z Drainage of Right Pleural Cavity with Drainage Device, Percutaneous Approach (ICD-10-PCS; 2018-06-11)
DX: C34.2 Malignant neoplasm of middle lobe, bronchus or lung (principal); C78.7 Secondary malignant neoplasm of liver and intrahepatic bile duct; C79.31 Secondary malignant neoplasm of brain; J90 Pleural effusion, not elsewhere classified

== ENCOUNTER 2018-06-08 08:00 | Outpatient (CLI) | payer MEDICARE, OTHER ==
[~2018-06-08 08:00] MED LIST changes: +FUROSEMIDE20 MG PO; +K-TAB10 MEQ PO
[2018-06-08 11:01] VITALS: BMI 24.6
--- NOTE | 2018-06-08 14:05 | OP ---
PATIENT NAME: LEOBARDO MENDEZ MEDICAL RECORD: [id number] :45 LOCATION:D.OPS ADMISSION DATE: SURGEON: KEY ABDI MD DATE OF OPERATION: 06/08/2018 PREOPERATIVE DIAGNOSES: 1. Metastatic lung cancer. 2. Right pleural effusion. 3. Hypertension. 4. Anxiety. 5. Peripheral vascular disease. POSTOPERATIVE DIAGNOSES: 1. Metastatic lung cancer. 2. Right pleural effusion. 3. Hypertension. 4. Anxiety. 5. Peripheral vascular disease. PROCEDURE: Right subclavian vein PowerPort placement. SURGEON: Key Abdi MD REPORT OF PROCEDURE: The patient's right chest was prepped and draped in sterile fashion. A needle was used to cannulate the right subclavian vein and a guidewire was advanced with ease. Fluoro was used to note that the wire was in good position in the venous system. A skin incision was made on the right superolateral chest and a subcutaneous pouch was made over the pectoral fascia. This catheter was tunneled between the pouch and the wire exit site. The port was sutured to the pectoral fascia using interrupted 2-0 Prolenes times 2. The catheter was cut with a beveled tip at 23 cm. The dilator trocar device was placed over the wire, and the wire and dilator were removed. The catheter tip was advanced through the trocar with ease. The trocar was then removed. The catheter tip was then noted to be resting in good position at the right atrial superior vena caval junction. The catheter aspirated nonpulsatile dark blood and flushed easily with heparinized saline. The subcutaneous tissues were reapproximated with interrupted 3-0 Vicryls, and the skin was closed with running subcutaneous 5-0 Monocryl. The port was then accessed and dressed appropriately. COMPLICATIONS: None. CONDITION: Stable. ANESTHESIA: General endotracheal. BLOOD LOSS: Minimal. TRANSINT:[id number] Voice Confirmation ID: [id number] DOCUMENT ID: [id number] OPERATIVE REPORT [id number] ANDREALEOBARDO CHRISTIAN MD at 1405 CC: [id number] DICTATION DATE: 06/08/18 1019 DIRECTOR FAMILY: 06/08/18 [id number] [place] [address]
== END 2018-06-08 08:01 | disposition home or self-care (01) ==
LOC: D.OPS 08:00 → D.PAN 10:30 → EDSTATUS 10:30 → D.OPS 10:30
DX: C34.90 Malignant neoplasm of unspecified part of unspecified bronchus or lung (principal); J90 Pleural effusion, not elsewhere classified; C79.9 Secondary malignant neoplasm of unspecified site; I10 Essential (primary) hypertension; F41.9 Anxiety disorder, unspecified; I73.9 Peripheral vascular disease, unspecified; Z01.812 Encounter for preprocedural laboratory examination

== ENCOUNTER → 2018-06-27 11:07 | Outpatient (CLI) | payer MEDICARE, OTHER ==
[2018-06-08 11:01] VITALS: BMI 24.6
== END | disposition home or self-care (01) ==
LOC: D.RAD 11:07
DX: J90 Pleural effusion, not elsewhere classified (principal)

== ENCOUNTER 2018-07-23 11:09 | Outpatient (CLI) | payer MEDICARE, OTHER ==
[~2018-07-23] VITALS: Ht 162.6 cm; Wt 63.6 kg
--- NOTE | ~2018-07-23 | HEMODYNAMI ---
PATIENT:LEOBARDO MENDEZ MEDICAL RECORD: [id number] : 45 LOCATION:[facility] ADMISSION DATE: 07/23/18 Generatedon:07/23/201814:00 Patient name: LEOBARDO MENDEZ Patient #: [id number] SSN: : 1945 Date of study: 07/23/2018 Page: Of Hemodynamic Procedure Report Patient Data Patient Demographics Procedure consent was obtained First Name: LEOBARDO Gender: Female Last Name: ANDREA : 1945 [facility] Initial: LUIS Age: 72 year(s) Patient #: [id number] Race: Unknown Additional ID: [id number] Contact details [address]: [address] [place] [address] State: [place] City: [place] Zip code: [address] Past Medical History Allergies Allergen Reaction Date Comments Reported Other allergy 06/11/2018 compazine and sulfa Admission Admission Data Admission Date: 07/23/2018 Admission Time: 11:09 Height (in.): 64 BSA: 1.68 (m2) Height (cm.): 162.56 BMI: 24.03 (kg/m2) Weight (lbs.): 140 Weight (kg.): 63.5 Procedure Procedure Types Cath Procedure Peripheral Cath Diagnostic Procedure International Account Executive Peripheral Procedures Miscellaneous Pleurex Remove Pleurex Pleural Cath Procedure Description Procedure Date Procedure Date: 07/23/2018 Procedure Start Time: 13:40 Procedure Staff Name Function Real Ramos MD Performing Physician Lo Burnett RT Dragline Oiler Radha Tong RN Nurse Harpal Hassan RT Scrub Procedure Data Cath Procedure Fluoroscopy Diagnostic fluoroscopy Total fluoroscopy Time: 0 time: 0 min min Diagnostic fluoroscopy Total fluoroscopy dose: 1 dose: 1 mGy mGy Procedure Medications Medication Administration Route Dosage Heparin Flush Bag added to field 1 bags (1000units/500ml NS) Lidocaine 1% added to field 20 Benadryl I.V. 50 mg Versed I.V. 1 mg Fentanyl I.V. 50 mcg Versed I.V. 1 mg Fentanyl I.V. 50 mcg Hemodynamics Rest BSA: 1.68 (m2) O2 Consumption: Estimated: 159 (ml/min) O2 Consumption indexed: Estimated:94.64 (ml/min/m) Heart Rate: 78 (bpm) Snapshots Pre Cath Intra NCS Post Cath Vital Signs Time Heart Resp SPO2 etCO2 NIBP (mmHg) Rhythm Pain Sedation Rate (ipm) (%) (mmHg) Status Level (bpm) 13:35:08 80 20 99 0 147/73(109) NSR 0 (11) 9(A) , No pain 13:39:26 80 25 0 144/72(110) NSR 0 (11) 9(A) , No pain 13:42:53 79 19 99 0 148/71(113) NSR 0 (11) 9(A) , No pain 13:45:43 71 10 99 0 144/68(102) NSR 0 (11) 8(A) , No pain 13:48:37 82 13 100 0 139/79(116) NSR 0 (11) 8(A) , No pain 13:52:49 74 16 100 0 145/80(113) NSR 0 (11) 8(A) , No pain 13:57:07 79 17 100 0 143/71(104) NSR 0 (11) 8(A) , No pain Medications Time Medication Route Dose Verified Delivered Reason Notes Effe ctiveness by by 13:34:24 Heparin Flush added 1 Real Noble used for Bag to bags Richard Ramos procedure (1000units/500ml field MD STERN NS) 13:34:38 Lidocaine 1% added 20ml Real Noble for local to vial Richard Ramos anesthetic field MD STERN 13:38:52 Benadryl I.V. 50 mg Real Garcia Per Richard Tong RN physician 13:41:36 Versed I.V. 1 mg Real Garcia for Richard Tong RN sedation 13:41:47 Fentanyl I.V. 50 Real Garcia for mcg Richard Tong RN sedation 13:44:06 Versed I.V. 1 mg Real Garcia for Richard Tong RN sedation 13:44:13 Fentanyl I.V. 50 Real Garcia for mcg Richard Tong RN sedation Procedure Log Time Note 12:59:29 Patient Height : 64 inches 12:59:39 Patient Weight : 140 lbs 13:00:12 Time tracking: Regular hours (M-F 7:00 - 5:00) 13:15:08 Plan of Care:Hemodynamics will remain stable., Cardiac rhythm will remain stable., Comfort level will be maintained., Respiratory function will remain adequate., Patient/ family verbilizes understanding of procedure., Procedure tolerated without complication., Recovers from procedure without complications.. 13:15:14 Patient received from Outpatients to IR Alert and oriented. Tansferred to table in Supine position. 13:15:17 Signed procedure consent form obtained from patient. 13:15:23 H&P Date Dictated: 07/23/2018 Within 30 days and on chart.. 13:15:25 Pre-procedure instructions explained to patient. 13:15:26 Pre-op teaching completed and patient verbalized understanding. 13:15:28 Family in waiting room. 13:15:31 Patient NPO since Midnight. 13:15:46 Is the patient allergic to Iodine/contrast media? No. 13:15:49 Is patient on blood thinner?No 13:15:52 Patient diabetic? No. 13:15:54 - 13:15:57 ----Pre-sedation anethsthesia assessment.---- 13:16:00 Previous problem with sedation/anesthesia? No ? 13:16:02 Snore? No 13:16:06 Sleep apnea? No 13:16:10 Deviated septum? No 13:16:12 Opens mouth fully? Yes 13:16:15 Sticks out tongue? Yes 13:16:21 Airway obstruction? Yes lung ca 13:16:25 Dentures? No ? 13:29:44 IV patent on arrival in port with D5/.45%NaCl at [facility]. 13:30:48 Right Chest was prepped with chlora-prep and draped in sterile fashion. 13:30:54 - 13:31:00 Use device set IR Diagnostic 13:31:02 Tegaderm 4 x 4 ([id number]) opened to sterile field. 13:31:03 Sterile Angiographic Pack opened to sterile field. 13:31:04 Bag Decanter (2002S) opened to sterile field. 13:31:50 - 13:33:59 ECG and BP/O2 sat monitors applied to patient. 13:34:00 Vital chart was started 13:34:01 Baseline sample Acquired. 13:34:03 Full Disclosure recording started 13:34:04 - 13:34:24 Heparin Flush Bag (1000units/500ml NS) 1 bags added to field was administered by Real Ramos MD; used for procedure; :34:38 Lidocaine 1% 20ml vial added to field was administered by Real schumacher MD; for local anesthetic; :38:39 Physician arrived 13:38:40 --------ALL STOP TIME OUT------ 13:38:41 Final Timeout: patient, procedure, and site verified with staff and physician. All members of the team are in agreement. 13:38:52 Benadryl 50 mg I.V. was administered by Radha Tong RN; Per physician ; 13:39:51 Procedure started. 13:40:00 Local anesthetic to Chest area with Lidocaine 1% by Real Ramos MD.INITIAL ACCESS ONLY 13:41:36 Versed 1 mg I.V. was administered by Radha Tong RN; for sedation; 13:41:47 Fentanyl 50 mcg I.V. was administered by Radha Tong RN; for sedation ; 13:44:06 Versed 1 mg I.V. was administered by Radha Tong RN; for sedation; 13:44:13 Fentanyl 50 mcg I.V. was administered by Radha Tong RN; for sedation ; 13:51:47 pleurX cath removed 13:52:30 bandaged with steri strips, 4x4 and tegaderm 13:52:36 Procedure ended.(Physican Out) 13:52:57 Fluoroscopy time 00.00 minutes. 13:53:00 Flurop Dose total: 1 13:53:01 Fluoroscopy dose: 1 mGy 13:53:03 Procedure and supply charges have been captured, reviewed, submitted an d are correct. 14:00:01 Report given to Outpatients. 14:00:07 Patient transfered to Outpatients with Stretcher. 14:00:31 Vital chart was stopped Device Usage Item Name Manufacture Quantity Catalog Hospital Part Current Minimal Lot# / Number Charge Number Stock Stock Serial# Code Tegaderm 4 x 3M 1 [id number] 4 (1626W) Sterile Cardinal 1 [id number] 5 Angiographic Health Pack Bag Decanter Microtek 1 [id number] 5 () [employer] Signature Audit Golden Stage Time Signature Unsigned Intra-Procedure 07/23/2018 Lo Burnett 2:00:26 PM RT(R) [facility] [address] [place] [address]
[2018-07-23 11:26] LABS: HEMATOCRIT 32.7 % (36.0-48.0); HEMOGLOBIN 10.6 g/dL (12-16); MCH 30.7 pg (26.0-34.0); MCHC 32.4 g/dL (31.0-37.0); MCV 94.8 fL (80.0-100.0); MEAN PLATELET VOLUME 9.5 fL (7.4-10.4); RBC 3.45 10x6/uL (4.00-5.40); RDW 14.5 % (11.5-14.5); WBC 2.5 10x3/uL (4.8-10.8)
[2018-07-23 11:37] LABS: ANION GAP 14.4 mmol/L (8-16); CALCIUM 9.5 mg/dL (8.5-10.1); CARBON DIOXIDE 28.3 mmol/L (21.0-32.0); CREATININE - SERUM 0.9 mg/dL (0.6-1.3); POTASSIUM - SERUM 3.7 mmol/L (3.5-5.1)
[2018-07-23 11:39] LABS: APTT 30.8 SECONDS (22.8-39.4); INR 1.06 (0.85-1.17); PROTIME 13.3 SECONDS (11.6-15.0)
[2018-07-23 11:46] LABS: PLATELET COUNT 90 10x3/uL (130-400)
[2018-07-23 12:14] VITALS: BP 150/71; Ht 162.6 cm; Wt 63.6 kg
[2018-07-23 13:46] LABS: EOSINOPHILS 2 % (0-7); LYMPHOCYTES 62 % (15-50); MONOCYTES 17 % (2-11); NEUTROPHILS 14 % (40-80)
[2018-07-23 13:47] LABS: PLATELET ESTIMATE DECREASED
[2018-07-23 13:48] LABS: ROULEAUX OCC
--- NOTE | 2018-07-23 14:21 | NUR ---
PT IS RESTING QUIETLY IN ROOM WITH SIDE RAILS UP X'S2. DENIES PAIN/NEEDS AT THIS TIME. VS STABLE. WILL CONTINUE TO MONITOR.
--- NOTE | 2018-07-23 16:17 | NUR ---
DC INSTRUCTIONS GIVEN TO PT/FAMILY. STATE UNDERSTANDING. DEACCESSED PORT FULLY INTACT. PT LEFT UNIT VIA WC AT 1616
== END 2018-07-23 16:16 | disposition home or self-care (01) ==
LOC: D.SP 11:09 → D.RAD 13:00 → D.SP 13:00
PROVIDERS: Radiology Diagnostic Radiology; ATTEND Internal Medicine Hematology & Oncology
DX: C34.90 Malignant neoplasm of unspecified part of unspecified bronchus or lung (principal); Z46.89 Encounter for fitting and adjustment of other specified devices; Z01.812 Encounter for preprocedural laboratory examination

== ENCOUNTER → 2018-09-14 12:04 | Outpatient (CLI) | payer MEDICARE, OTHER | END | disposition home or self-care (01) | LOC: D.RAD 12:04 | DX: C34.2 Malignant neoplasm of middle lobe, bronchus or lung (principal) ==

== ENCOUNTER → 2018-11-20 12:13 | Outpatient (CLI) | payer MEDICARE, OTHER ==
[2018-07-23 12:14] VITALS: BMI 24.0
== END | disposition home or self-care (01) ==
LOC: D.RAD 12:13
PROVIDERS: ATTEND Internal Medicine Hematology & Oncology
DX: Z85.118 Personal history of other malignant neoplasm of bronchus and lung (principal)

== ENCOUNTER 2018-11-20 12:44 | Emergency (ER) | payer MEDICARE, OTHER ==
[~2018-11-20] VITALS: Ht 162.6 cm; Wt 60.8 kg
[2018-11-20 12:47] VITALS: Ht 162.6 cm; Wt 60.8 kg
[2018-11-20 14:14] LABS: BASOPHILS 0.4 % (0-2); EOSINOPHILS 0.4 % (0-7); HEMATOCRIT 30.7 % (36.0-48.0); HEMOGLOBIN 10.5 g/dL (12-16); IMMATURE GRANULOCYTES 2.2 % (0-5); LYMPHOCYTES 15.5 % (15-50); MCHC 34.2 g/dL (31.0-37.0); MCV 96.5 fL (80.0-100.0); MEAN PLATELET VOLUME 10.1 fL (7.4-10.4); MONOCYTES 1.1 % (2-11); NEUTROPHILS 80.4 % (40-80); RBC 3.18 10x6/uL (4.00-5.40); WBC 12.4 10x3/uL (4.8-10.8)
[2018-11-20 14:19] LABS: INR 1.05 (0.85-1.17); PLATELET COUNT 144 10x3/uL (130-400); PROTIME 13.2 SECONDS (11.6-15.0)
[2018-11-20 14:32] LABS: ALBUMIN 3.5 g/dL (3.4-5.0); ALKALINE PHOSPHATASE 86 U/L (46-116); ALT (SGPT) 26 U/L (10-68); CALC OSMOLALITY 280 mosm/kg (275-300); CALCIUM 9.3 mg/dL (8.5-10.1); CARBON DIOXIDE 27.8 mmol/L (21.0-32.0); CHLORIDE - SERUM 103 mmol/L (98-107); CREATININE - SERUM 1.1 mg/dL (0.6-1.3); GLUCOSE 98 mg/dL (74-106); POTASSIUM - SERUM 3.8 mmol/L (3.5-5.1); PROTEIN - SERUM 6.5 g/dL (6.4-8.2); SODIUM 139 mmol/L (136-145); UREA NITROGEN 22 mg/dL (7-18); eGFR NON AFRICAN AMERICAN 51 mL/min (90-120)
[2018-11-20 14:44] LABS: CKMB 0.3 U/L (0.0-3.6); CREATINE KINASE 16 UL (21-215); PRO BNP 150 pg/mL (0-125); TROPONIN-I < 0.017 ng/mL (0.000-0.060)
[2018-11-20 16:19] VITALS: BP 154/62
== END 2018-11-20 16:20 | disposition home or self-care (01) ==
LOC: D.ER 12:44
PROVIDERS: Family Medicine
DX: F41.9 Anxiety disorder, unspecified (principal); C34.90 Malignant neoplasm of unspecified part of unspecified bronchus or lung

== ENCOUNTER → 2019-03-07 13:20 | Outpatient (CLI) | payer MEDICARE, OTHER ==
[2018-11-20 12:47] VITALS: BMI 24.0
[~2019-03-07 13:20] MED LIST changes: +DILAUDID2 MG PO; +PROMETH-CODEIN 65 ML PO; +TOPROL XL25 MG PO; +TYLENOL W/CODEI1 TAB PO
== END | disposition home or self-care (01) ==
LOC: D.RT 03-01 11:30
PROVIDERS: ATTEND Internal Medicine Pulmonary Disease
DX: C34.90 Malignant neoplasm of unspecified part of unspecified bronchus or lung (principal)

== ENCOUNTER 2019-03-13 09:23 | Outpatient (CLI) | payer MEDICARE, OTHER ==
[~2019-03-13] VITALS: Ht 162.6 cm; Wt 62.3 kg
[~2019-03-13 09:23] MED LIST changes: -DILAUDID2 MG PO; -PROMETH-CODEIN 65 ML PO; -TOPROL XL25 MG PO; -TYLENOL W/CODEI1 TAB PO
[2019-03-13 09:55] LABS: BASOPHILS 0.4 % (0-2); EOSINOPHILS 3.4 % (0-7); HEMATOCRIT 33.5 % (36.0-48.0); HEMOGLOBIN 10.8 g/dL (12-16); IMMATURE GRANULOCYTES 0.2 % (0-5); LYMPHOCYTES 26.9 % (15-50); MCH 34.2 pg (26.0-34.0); MCHC 32.2 g/dL (31.0-37.0); MEAN PLATELET VOLUME 9.4 fL (7.4-10.4); MONOCYTES 10.1 % (2-11); RBC 3.16 10x6/uL (4.00-5.40); WBC 4.7 10x3/uL (4.8-10.8)
[2019-03-13 09:59] LABS: PLATELET COUNT 200 10x3/uL (130-400)
[2019-03-13] MEDS ORDERED: ZOFRAN ODT4 MG/UDTAB PO (10:12)
[2019-03-13] MEDS ORDERED: TOPROL XL25 MG PO (10:13)
[2019-03-13] MEDS ORDERED: TYLENOL W/CODEI1 TAB PO (10:14)
[2019-03-13] MEDS ORDERED: DILAUDID2 MG PO (10:15)
[2019-03-13 10:16] LABS: ANION GAP 7.6 mmol/L (8-16); CALCIUM 9.1 mg/dL (8.5-10.1); CARBON DIOXIDE 30.6 mmol/L (21.0-32.0); CREATININE - SERUM 1.1 mg/dL (0.6-1.3); POTASSIUM - SERUM 4.2 mmol/L (3.5-5.1)
[2019-03-13] MEDS ORDERED: PROMETH-CODEIN 65 ML PO (10:16)
[2019-03-13 10:21] VITALS: BP 122/53; Ht 162.6 cm; Wt 62.3 kg
[2019-03-13 10:33] LABS: APTT 28.9 SECONDS (22.8-39.4); INR 1.01 (0.85-1.17); PROTIME 12.8 SECONDS (11.6-15.0)
--- NOTE | 2019-03-13 13:20 | NUR ---
1156-REC'D FROM IR. DROWSY,EASILY AROUSED WITH VERBAL STIMULI. VSS. NO DISTRESS. 02 VIA N/C @2L CONTINUOUS. CL IN EASY REACH.
--- NOTE | 2019-03-13 13:21 | NUR ---
1315-REGULAR TRAY TO ROOM.VSS. PLEASANT. PAIN DECREASED TO 2/10 AFTER IVP OF DILAUDID 1MG. CL IN EASY REACH
--- NOTE | 2019-03-13 13:50 | NUR ---
CONTINUE TO EAT TRAY. DENIES COMPLAINTS. VSS. NO DISTRESS. CL IN EASY REACH. FRIEND AT BEDSIDE.
== END 2019-03-13 16:00 | disposition home or self-care (01) ==
LOC: D.CT 09:23
PROVIDERS: ATTEND Radiology Diagnostic Radiology
DX: K76.9 Liver disease, unspecified (principal); C34.91 Malignant neoplasm of unspecified part of right bronchus or lung

== ENCOUNTER 2019-03-28 13:29 | Outpatient (CLI) | payer MEDICARE, OTHER ==
[~2019-03-28] VITALS: Ht 162.6 cm; Wt 61.4 kg
[~2019-03-28 13:29] MED LIST changes: +DILAUDID2 MG PO; +PROMETH-CODEIN 65 ML PO; +TOPROL XL25 MG PO; +TYLENOL W/CODEI1 TAB PO
[2019-03-28 14:03] VITALS: BP 130/54; Ht 162.6 cm; Wt 61.4 kg
== END 2019-03-28 14:21 | disposition home or self-care (01) ==
LOC: D.OPS 13:29
PROVIDERS: ATTEND Internal Medicine Hematology & Oncology
DX: D70.8 Other neutropenia (principal); C50.411 Malignant neoplasm of upper-outer quadrant of right female breast; C78.7 Secondary malignant neoplasm of liver and intrahepatic bile duct; C34.2 Malignant neoplasm of middle lobe, bronchus or lung

== ENCOUNTER 2019-03-29 10:14 | Outpatient (CLI) | payer MEDICARE, OTHER ==
[~2019-03-29] VITALS: Ht 162.6 cm; Wt 61.4 kg
[2019-03-29 11:16] VITALS: BP 128/61; Ht 162.6 cm; Wt 61.4 kg
== END 2019-03-29 11:23 | disposition home or self-care (01) ==
LOC: D.OPS 10:14
PROVIDERS: ATTEND Internal Medicine Hematology & Oncology
DX: D70.8 Other neutropenia (principal); C50.411 Malignant neoplasm of upper-outer quadrant of right female breast; C78.7 Secondary malignant neoplasm of liver and intrahepatic bile duct; C34.2 Malignant neoplasm of middle lobe, bronchus or lung

== ENCOUNTER 2019-03-30 11:26 | Outpatient (CLI) | payer MEDICARE, OTHER ==
[~2019-03-30] VITALS: Ht 162.6 cm; Wt 61.8 kg
[2019-03-30 11:53] VITALS: BP 106/48; Ht 162.6 cm; Wt 61.8 kg
--- NOTE | 2019-03-30 12:03 | NUR ---
PATIENT SITTING IN BED WITH EYES OPEN. PATIENT ALERT/ORIENTED. CALL LIGHT WITHIN REACH. NO DISTRESS. PATIENT HERE FOR GRANEX INJECTION ONLY. AWAITING ON PHARMACY TO DELIVER TO UNIT.
--- NOTE | 2019-03-30 12:56 | NUR ---
INJECTION ADMINISTERED AT 1250, ASKED PATIENT TO STAY UNTIL 1320. PATIENT STATES SHE IS NOT STAYING 30 MINUTES BECAUSE SHE HAS HAD THIS INJECTION FOR 3 DAYS IN A ROW AND DOES NOT HAVE ANY REACTION. ADVISED PATIENT THIS NURSE IS ONLY GOING BY PROTOCOL, WE CANNOT MAKE HER STAY BUT ARE ASKING HER. PATIENT VERY IMPATIENT AND TIRED OF BEING HERE FOR AN EXTENDED LENGTH OF TIME FOR ONE INJECTION. WILL RECHECK PATIENTS BLOOD PRESSURE AT 1310.
--- NOTE | 2019-03-30 13:13 | NUR ---
PATIENT LEFT UNIT AMBULATORY WITH ALL PERSONAL BELONGINGS. NO DISTRESS UPON LEAVING UNIT. PATIENT VERBALIZES SHE WILL BE BACK FOR ANOTHER INJECTION TOMORROW.
== END 2019-03-30 13:20 | disposition home or self-care (01) ==
LOC: D.OPS 11:26 → D.M2 11:31 → D.OPS 13:20
PROVIDERS: ATTEND Internal Medicine Hematology & Oncology
DX: D70.8 Other neutropenia (principal); C50.411 Malignant neoplasm of upper-outer quadrant of right female breast; C78.7 Secondary malignant neoplasm of liver and intrahepatic bile duct; C34.2 Malignant neoplasm of middle lobe, bronchus or lung

== ENCOUNTER 2019-03-31 11:40 | Outpatient (CLI) | payer MEDICARE, OTHER ==
[~2019-03-31] VITALS: Ht 162.6 cm; Wt 61.4 kg
--- NOTE | 2019-03-31 11:55 | NUR ---
PT ARRIVED VIA WHEELCHIAR TO ROOM. NO COMPLAITNS/CONCENR,S ADMITTING NOW
--- NOTE | 2019-03-31 12:02 | NUR ---
pt is strict vegitarian.
[2019-03-31 12:09] VITALS: BP 128/43; Ht 162.6 cm; Wt 61.4 kg
--- NOTE | 2019-03-31 12:38 | NUR ---
PT REFUSED TO WAIT 30 MINUTES POST SHOT, OFFERED WHEELCHAIR DOWNSTAIRS BUT PT REFUSED. WAS IN AND OUT WITHIN 30 MINUTES, C/O IT NOT BEING FAST ENOUGH. PT AMBULATED OUT OF HER OWN ACCORD, AT SIDE TO V.
--- NOTE | 2019-04-01 08:50 | MORECARE ---
CASE MANAGEMENT DISCHARGE SUMMARY PATIENT: LEOBARDO MENDEZ LUIS UNIT: [id number] ADM DATE: 03/31/19 AGE: 73 : 45 SEX: F ROOM/BED: D.2103 AUTHOR: SHELDON BOUDREAUX PHYSICIAN: REFERRING PHYSICIAN: JING HOWELL MD DATE OF SERVICE: 04/01/19 Discharge Plan Patient Name: LEOBARDO MENDEZ [facility] [facility] 1945 Planned Disposition: Anticipated Discharge Date: 03/31/19 Discharge Date: 03/31/2019 Expected LOS: 1 Initial Reviewer: [email or web address] Initial Review Date: 04/01/2019 Generated: 04/01/19 9:50 am Patient Name: LEOBARDO MENDEZ Page [phone] at 0850 All edits/amendments must be made on the electronic document DICTATION DATE: 04/01/1949 LEARNING FACILITATOR: LAQUITA 04/01/1949 RPT#: [id number] DC DATE:03/31/19 STATUS: DIS IN [facility] [address] [place] [address] END OF REPORT
== END 2019-03-31 12:40 | disposition home or self-care (01) ==
LOC: OBSVTIME → D.OPS 11:40 → OBSVTIME 11:42 → D.M2 11:42 → D.OPS 12:37 → D.M2 12:40 → D.OPS 12:40
PROVIDERS: ATTEND Internal Medicine Hematology & Oncology
DX: D70.8 Other neutropenia (principal); C50.411 Malignant neoplasm of upper-outer quadrant of right female breast; C34.2 Malignant neoplasm of middle lobe, bronchus or lung; C78.7 Secondary malignant neoplasm of liver and intrahepatic bile duct

== ENCOUNTER 2019-04-29 10:30 | Emergency (ER) | payer MEDICARE, OTHER ==
[~2019-04-29] VITALS: Ht 162.6 cm; Wt 59.0 kg
[2019-04-29 10:33] VITALS: Ht 162.6 cm; Wt 59.0 kg
[2019-04-29 11:02] LABS: BASOPHILS 0 % (0-2); EOSINOPHILS 1.1 % (0-7); HEMATOCRIT 29.4 % (36.0-48.0); HEMOGLOBIN 9.8 g/dL (12-16); LYMPHOCYTES 6.3 % (15-50); MCH 34.3 pg (26.0-34.0); MCHC 33.3 g/dL (31.0-37.0); MCV 102.8 fL (80.0-100.0); MEAN PLATELET VOLUME 9.3 fL (7.4-10.4); MONOCYTES 0.7 % (2-11); NEUTROPHILS 91.9 % (40-80); PLATELET COUNT 185 10x3/uL (130-400); RBC 2.86 10x6/uL (4.00-5.40); RDW 16.1 % (11.5-14.5); WBC 5.6 10x3/uL (4.8-10.8)
[2019-04-29 11:09] LABS: ANION GAP 11.8 mmol/L (8-16); CALCIUM 9.2 mg/dL (8.5-10.1); CARBON DIOXIDE 26.2 mmol/L (21.0-32.0); CREATININE - SERUM 0.9 mg/dL (0.6-1.3)
[2019-04-29 11:15] LABS: ALBUMIN 2.8 g/dL (3.4-5.0); BILIRUBIN - TOTAL 0.57 mg/dL (0.2-1.3); PROTEIN - SERUM 6.4 g/dL (6.4-8.2)
[2019-04-29 12:52] LABS: APPEARANCE CLEAR (CLEAR); BILIRUBIN NEGATIVE (NEGATIVE); COLOR STRAW (YELLOW); GLUCOSE NEGATIVE (NEGATIVE); KETONE NEGATIVE (NEGATIVE); NITRITE NEGATIVE (NEGATIVE); PROTEIN NEGATIVE (NEGATIVE); SPECIFIC GRAVITY 1.005 (1.005-1.020); UROBILINOGEN NORMAL (NORMAL)
[2019-04-29] MEDS ORDERED: CHRONULAC30 ML PO (13:43)
[2019-04-29 19:21] VITALS: BP 113/56
== END 2019-04-29 14:19 | disposition home or self-care (01) ==
LOC: D.ER 10:30
PROVIDERS: Family Medicine
DX: M54.9 Dorsalgia, unspecified (principal); K59.00 Constipation, unspecified; M51.36 Other intervertebral disc degeneration, lumbar region; I10 Essential (primary) hypertension; C34.90 Malignant neoplasm of unspecified part of unspecified bronchus or lung